=== PATIENT | male | born 1955 | race Caucasian/White ===

== ENCOUNTER 2019-12-30 06:55 | Outpatient (CLI) | payer OTHER, SELFPAY ==
[2019-12-30 07:28] LABS: Hemoglobin 16.7 g/dL (14.0-18.0); Mean Corpuscular HGB Conc 32.7 g/dl (32-36); Mean Corpuscular Volume 91.6 fl (80-100); Mean Platelet Volume 11.4 fl (7.4-10.4); Platelet Count Result 182 k/mm3 (150-375); Red Blood Count 5.57 M/mm3 (4.6-6.20); Red Cell Distribution Width 13.9 % (11.5-14.5); White Blood Count 9.5 K/mm3 (4.5-10.0)
[2019-12-30 07:54] LABS: Alanine Aminotransferase 37 U/L (4-50); Albumin Level 4.3 g/dL (3.5-5.1); Alkaline Phosphatase 76 U/L (38-126); Aspartate Amino Transferase 27 U/L (17-59); Bilirubin,Total 0.4 mg/dL (0.2-1.3); Blood Urea Nitrogen 15 mg/dL (9-20); Calcium 9.1 mg/dL (8.4-10.2); Carbon Dioxide 25 mmol/L (22-30); Chloride 103 mmol/L (98-107); Cholesterol 117 mg/dL (0-200); Estimated Glomerular Filt Rate > 60; Glucose 165 mg/dL (75-110); HDL Direct 31 mg/dL; Potassium 3.9 mmol/L (3.4-5.0); Sodium 137 mmol/L (137-145); Triglycerides 186 mg/dL (<150)
[2019-12-30 08:05] LABS: LDL Cholesterol Direct 59 mg/dL
[2020-01-04 13:22] LABS: Testosterone Free 30.2 pg/mL (35.0-155.0); Testosterone Total 158 ng/dL (250-1100)
== END 2019-12-30 06:56 | disposition home or self-care (01) ==
PROVIDERS: PCP Family Medicine; Visit Provider Nurse Practitioner Family
DX: Z13.29 Encounter for screening for other suspected endocrine disorder (principal); R79.89 Other specified abnormal findings of blood chemistry; I10 Essential (primary) hypertension
CPT/HCPCS: 36415; 80053; 80061; 84402; 84403; 84443; 85027

== ENCOUNTER 2020-05-04 07:27 | Outpatient (CLI) | payer OTHER, SELFPAY ==
[2020-05-04 10:41] LABS: Creatinine Urine 206.9 mg/dL
[2020-05-04 10:53] LABS: MALB Creatinine Ratio 173.6 mg/g (0-30); Microalbumin Urine Random 359.1 mg/L (0-16.7)
== END 2020-05-04 07:28 | disposition home or self-care (01) ==
PROVIDERS: PCP Family Medicine; Visit Provider Nurse Practitioner Family
DX: E11.9 Type 2 diabetes mellitus without complications (principal)
CPT/HCPCS: 36415; 82043

== ENCOUNTER 2020-05-11 07:54 | Outpatient (CLI) | payer OTHER, SELFPAY ==
[2020-05-11 08:26] LABS: Anion Gap 5 mmol/L (8-16); Blood Urea Nitrogen 20 mg/dL (9-20); Calcium 9.2 mg/dL (8.4-10.2); Carbon Dioxide 33 mmol/L (22-30); Chloride 105 mmol/L (98-107); Cholesterol 94 mg/dL (0-200); Estimated Glomerular Filt Rate > 60; Glucose 126 mg/dL (75-110); HDL Direct 32 mg/dL; Potassium 4.3 mmol/L (3.4-5.0); Sodium 143 mmol/L (137-145); Triglycerides 139 mg/dL (<150)
[2020-05-11 08:36] LABS: LDL Cholesterol Direct 41 mg/dL
== END 2020-05-11 07:55 | disposition home or self-care (01) ==
PROVIDERS: PCP Family Medicine; Visit Provider Nurse Practitioner Family
DX: E11.9 Type 2 diabetes mellitus without complications (principal); Z12.5 Encounter for screening for malignant neoplasm of prostate
CPT/HCPCS: 36415; 80048; 80061; 84153; G0103

== ENCOUNTER 2020-05-14 12:05 | Outpatient (NON) | payer OTHER, SELFPAY ==
[2020-05-14 22:14] LABS: SARS-CoV-2 RNA PCR Negative
== END 2020-05-14 12:06 ==
PROVIDERS: PCP Family Medicine; Visit Provider Physician Assistant Medical
DX: Z20.828 Contact with and (suspected) exposure to other viral communicable diseases (principal); R68.89 Other general symptoms and signs
CPT/HCPCS: 87635; C9803; U0003

== ENCOUNTER 2020-09-30 16:18 | Outpatient (CLI) | payer OTHER, SELFPAY | END 2020-09-30 16:19 | disposition home or self-care (01) | LOC: ANHCOVIDVC 16:18 | PROVIDERS: PCP Family Medicine | DX: Z23 Encounter for immunization (principal) | CPT/HCPCS: 0001A; 91300 ==

== ENCOUNTER 2020-10-21 16:09 | Outpatient (CLI) | payer OTHER, SELFPAY | END 2020-10-21 16:10 | disposition home or self-care (01) | LOC: ANHCOVIDVC 16:10 | PROVIDERS: PCP Family Medicine | DX: Z23 Encounter for immunization (principal) | CPT/HCPCS: 0002A; 91300 ==

== ENCOUNTER 2021-02-01 07:18 | Outpatient (CLI) | payer OTHER, SELFPAY ==
[2021-02-01 08:06] LABS: Hematocrit 53.1 % (42.0-52.0); Hemoglobin 17.4 g/dL (14.0-18.0); Mean Corpuscular HGB Conc 32.8 g/dl (32-36); Mean Corpuscular Hemoglobin 30.3 pg (26-34); Mean Corpuscular Volume 92.5 fl (80-100); Mean Platelet Volume 11.7 fl (7.4-10.4); Platelet Count Result 181 k/mm3 (150-375); Red Blood Count 5.74 M/mm3 (4.6-6.20); Red Cell Distribution Width 14.2 % (11.5-14.5); White Blood Count 10.2 K/mm3 (4.5-10.0)
[2021-02-01 08:30] LABS: Alanine Aminotransferase 58 U/L (4-50); Albumin Level 4.5 g/dL (3.5-5.1); Alkaline Phosphatase 66 U/L (38-126); Anion Gap 11 mmol/L (8-16); Aspartate Amino Transferase 38 U/L (17-59); Bilirubin,Total 0.6 mg/dL (0.2-1.3); Blood Urea Nitrogen 19 mg/dL (9-20); Calcium 9.6 mg/dL (8.4-10.2); Carbon Dioxide 26 mmol/L (22-30); Chloride 103 mmol/L (98-107); Cholesterol 100 mg/dL (0-200); Estimated Glomerular Filt Rate > 60; Glucose 126 mg/dL (75-110); HDL Direct 38 mg/dL; LDL Cholesterol Direct 41 mg/dL; Potassium 4.2 mmol/L (3.4-5.0); Sodium 140 mmol/L (137-145); Triglycerides 87 mg/dL (<150)
[2021-02-01 08:50] LABS: Prostate Specific Antigen 1.9 ng/mL (< OR = 4.0)
[2021-02-06 18:04] LABS: Testosterone Free 31.7 pg/mL (35.0-155.0); Testosterone Total 174 ng/dL (250-1100)
== END 2021-02-01 07:19 | disposition home or self-care (01) ==
LOC: ANHLAB 07:20
PROVIDERS: PCP Family Medicine; Visit Provider Nurse Practitioner Family
DX: E34.9 Endocrine disorder, unspecified (principal); I10 Essential (primary) hypertension; E78.2 Mixed hyperlipidemia
CPT/HCPCS: 36415; 80053; 80061; 84153; 84402; 84403; 85027; G0103

== ENCOUNTER 2021-03-26 15:52 | Outpatient (CLI) | payer OTHER, SELFPAY ==
[2021-03-26 16:37] LABS: Alanine Aminotransferase 46 U/L (4-50)
[2021-03-30 14:51] LABS: Testosterone Free 101.5 pg/mL (35.0-155.0); Testosterone Total 470 ng/dL (250-1100)
== END 2021-03-26 15:53 | disposition home or self-care (01) ==
LOC: ANHLAB 15:54
PROVIDERS: PCP Family Medicine; Visit Provider Nurse Practitioner Family
DX: E34.9 Endocrine disorder, unspecified (principal); R74.8 Abnormal levels of other serum enzymes
CPT/HCPCS: 36415; 84402; 84403; 84460

== ENCOUNTER 2021-08-09 15:03 | Emergency (ER) | payer OTHER, SELFPAY ==
[2021-08-09] VITALS (8 sets, daily range): BP systolic 113–128; BP diastolic 68–72; PULSE 87–102; RESP 15–29; TEMP 37.7–39.4; O2SAT 92–98
--- NOTE | ~2021-08-09 | XR_ITS ---
EXAMINATION: XR chest 1V portable EXAM DATE: 08/09/2021 19:09 INDICATION: cough, fever . TECHNIQUE: Portable AP frontal chest x-ray was obtained. Comparison is made to prior examination from 09/01/2016. FINDINGS: Small amount of ill-defined bibasilar atelectasis or pneumonia. No pneumothorax or pleural effusion. Cardiomediastinal silhouette is normal. There are no osseous abnormalities identified. IMPRESSION: Small amount of bibasilar pneumonia and/or atelectasis. Reviewed, dictated and finalized at location G. BASE DESIGN ANALYST
--- NOTE | 2021-08-09 19:05 | ED.FEVER ---
HPI - Fever General Chief Complaint: Fever <NINA Rincon Last Filed: 08/09/21 21:42> Stated Complaint: fever, cough <NINA Rincon Last Filed: 08/09/21 21:42> Time Seen by Provider: 08/09/21 18:42 <NINA Rincon Last Filed: 08/09/21 21:42> Source: patient <NINA Rincon Last Filed: 08/09/21 21:42> Mode of arrival: ambulatory <NINA Rincon Last Filed: 08/09/21 21:42> Limitations: no limitations <NINA Rincon Last Filed: 08/09/21 21:42> History of Present Illness HPI Narrative: This is a 65 year old male that presents to the ER for cold symptoms present over the last couple of weeks. Reports congestion, cough, myalgias, fatigue and fever. Denies chest pain or shortness of breath. <NINA Rincon Last Filed: 08/09/21 21:42> Related Data Allergies/Adverse Reactions: Allergies Allergy/AdvReac Type Severity Reaction Status Date / Time clarithromycin Allergy Unknown Rash Verified 06/02/21 14:42 Beer Allergy Unknown NASAL Uncoded 06/02/21 14:42 CONGESTION <NINA Rincon Last Filed: 08/09/21 21:42> Review of Systems Review of Systems: CONSTITUTIONAL: Reports fever ENT: Reports congestion, sore throat CARDIOVASCULAR: Denies chest pain, or edema. RESPIRATORY: Reports cough. Denies dyspnea. <NINA Rincon Last Filed: 08/09/21 21:42> All systems reviewed & are unremarkable except as noted in HPI and below <NINA Rincon Last Filed: 08/09/21 21:42> PMFSH Past Medical History Medical History: Medical History Acute left-sided low back pain with left-sided sciatica BMI 36.0-36.9,adult Chronic right shoulder pain Diabetes type 2, controlled Essential (primary) hypertension Mixed hyperlipidemia Tobacco use <NINA Rincon Last Filed: 08/09/21 21:42> Family History Family History: Family History Father Cerebrovascular accident Mother Family history of diabetes mellitus in first degree relative Family history of coronary artery disease <Katty Jacobs PA-C - Last Filed: 08/09/21 21:42> Social History Social History: Social History Smoking packs per day: 1 Smoking cigarettes per day: 20.0 Years smoked: 35 Smoking pack-years: 35.00 Tobacco type: cigarettes Second hand tobacco smoke exposure: No Alcohol intake: former Substance use: never Substance use type: does not use Additional living arrangements comments: 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 HEAD: Normocephalic, atraumatic. EYES: EOMI. ENT: Nares clear, no rhinorrhea or epistaxis. Mucous membranes moist. Oropharynx without tonsillar hypertrophy exudate or other lesions. Bilateral TMs pearly apple non-bulging NECK: Supple. No adenopathy or masses. CHEST: Clear to auscultation. No respiratory distress. No wheezes rales or rhonchi HEART: Regular rate and rhythm. No murmur heard. Normal peripheral pulses. EXTREMITIES: Normal range of motion. No edema. SKIN: Warm, dry, no rash. NEURO: No focal deficits. Alert and oriented x3. PSYCH: Normal mood and affect <Katty Jacobs PA-C - Last Filed: 08/09/21 21:42> Course ANIMAL CHIROPRACTOR/PA Physician Supervision For this patient encounter, I reviewed the ANIMAL CHIROPRACTOR or PA documentation, treatment plan, and medical decision making <Sylvain George MD - Last Filed: 08/09/21 23:30> Vital Signs Vital signs: Vital Signs Temperature 99.8 F H 08/09/21 15:35 P
[2021-08-09 19:06] LABS: Basophils Absolute Auto 0.1 K/mm3 (0.0-0.1); Basophils Percent Auto 0.7 % (0.2-1.2); Eosinophils Absolute Auto 0.1 K/mm3 (0-0.3); Eosinophils Percent Auto 1.2 % (0-4.4); Hematocrit 48.4 % (42.0-52.0); Hemoglobin 16.4 g/dL (14.0-18.0); Immature Granulocyte Absolute 0.09 K/mm3 (0.00-0.031); Lymphocytes Absolute Auto 0.48 K/mm3 (0.9-3.2); Lymphocytes Percent Auto 5.3 % (18.3-44.2); Mean Corpuscular HGB Conc 33.9 g/dl (32-36); Mean Corpuscular Hemoglobin 30.8 pg (26-34); Mean Corpuscular Volume 90.8 fl (80-100); Monocytes Absolute Auto 1.1 K/mm3 (0.1-0.6); Monocytes Percent Auto 12.6 % (2.6-8.5); Neutrophils Absolute Auto 7.2 K/mm3 (1.3-6.7); Neutrophils Percent Auto 79.2 % (45.5-73.1); Platelet Count Result 152 k/mm3 (150-375); Red Blood Count 5.33 M/mm3 (4.6-6.20); Red Cell Distribution Width 14.7 % (11.5-14.5); White Blood Count 9.1 K/mm3 (4.5-10.0)
[2021-08-09 19:16] LABS: Anion Gap 13 mmol/L (8-16); Blood Urea Nitrogen 19 mg/dL (9-20); Calcium 9.5 mg/dL (8.4-10.2); Carbon Dioxide 23 mmol/L (22-30); Chloride 100 mmol/L (98-107); Estimated CRCL calculation 112 ml/min; Estimated Glomerular Filt Rate > 60; Glucose 114 mg/dL (65-110); Potassium 4.1 mmol/L (3.4-5.0); Sodium 136 mmol/L (137-145)
[2021-08-09] MEDS: ACETAMINOPHEN 500 MG TABLET 1000 MG PO (19:33)
[2021-08-09] MEDS: IBUPROFEN 400 MG TABLET PO (20:28)
[2021-08-09 21:23] LABS: Influenza A QL RT-PCR Negative (Negative); Influenza B QL RT-PCR Negative (Negative); SARS-CoV-2 RNA PCR Positive
== END 2021-08-09 21:53 | disposition home or self-care (01) ==
PROVIDERS: Physician Assistant; Emergency Provider Emergency Medicine; PCP Family Medicine
DX: U07.1 COVID-19 (principal); E11.9 Type 2 diabetes mellitus without complications; I10 Essential (primary) hypertension; E78.2 Mixed hyperlipidemia; Z79.84 Long term (current) use of oral hypoglycemic drugs; F17.210 Nicotine dependence, cigarettes, uncomplicated; R91.8 Other nonspecific abnormal finding of lung field
CPT/HCPCS: 36415; 71045; 80048; 85025; 87502; 99283; A9270; C9803; U0003; U0005

== ENCOUNTER 2021-08-21 14:12 | Outpatient (CLI) | payer OTHER, SELFPAY ==
--- NOTE | ~2021-08-21 | XR_ITS ---
EXAMINATION: XR chest 2V DATE: 08/21/2021 14:35 INDICATION: Bronchitis. COVID-19 pneumonia. TECHNIQUE: Frontal and lateral views of the chest were obtained. COMPARISON: Chest single view 08/09/2021, chest 2 views 09/01/2016 FINDINGS: There is chronic mild atelectasis versus scarring at right lung base. No pleural effusion o r pneumothorax. The heart size is normal. There is mild chronic anterior wedging of 2 midthoracic laura tebral bodies. IMPRESSION: 1. Chronic mild atelectasis versus scarring at right lung base. Reviewed, dictated and finalized at location A. T FACTORY WORKER
== END 2021-08-21 14:13 | disposition home or self-care (01) ==
PROVIDERS: PCP Family Medicine; Visit Provider Nurse Practitioner Family
DX: J40 Bronchitis, not specified as acute or chronic (principal); R91.8 Other nonspecific abnormal finding of lung field
CPT/HCPCS: 71046

== ENCOUNTER 2022-02-27 07:47 | Outpatient (CLI) | payer MEDICARE, OTHER, SELFPAY ==
[2022-02-27 09:13] LABS: Cholesterol 112 mg/dL (0-200); HDL Direct 35 mg/dL; Triglycerides 226 mg/dL (<150)
[2022-02-27 09:24] LABS: LDL Cholesterol Direct 42 mg/dL
[2022-02-27 09:30] LABS: Hemoglobin A1C 7.4 % (<5.7)
[2022-02-27 09:45] LABS: Prostate Specific Antigen 2.3 ng/mL (< OR = 4.0)
== END 2022-02-27 07:48 | disposition home or self-care (01) ==
PROVIDERS: PCP Family Medicine; Visit Provider Nurse Practitioner Family
DX: R39.11 Hesitancy of micturition (principal); E34.9 Endocrine disorder, unspecified; E78.2 Mixed hyperlipidemia; E11.9 Type 2 diabetes mellitus without complications; Z12.5 Encounter for screening for malignant neoplasm of prostate
CPT/HCPCS: 36415; 80061; 83036; 84153; G0103

== ENCOUNTER 2022-03-11 09:05 | Outpatient (CLI) | payer MEDICARE, OTHER, SELFPAY ==
--- NOTE | 2022-03-11 09:56 | ECHO_ITS ---
Patient Info Name: Titus Cha Age: 66 years : 1955 Gender: Male Ht: 73 in Wt: 280 lbs BSA: 2.60 m2 HR: 83 bpm BP: 145 / 98 mmHg Technical Quality: Good Exam Date: 03/11/2022 10:18 AM Exam Location: [facility] Patient Status: Outpatient Admit Date: 03/11/2022 Staff Ordering Physician: Rachele Manning Doctor Of Osteopathy: Tereza Spears RDCS Attending Provider: Rachele Manning Referring Physician: Nigel LIMA; Exam Type: CA echo doppler color flow Study Info Indications I10 - Essential (primary) hypertension Complete two-dimensional, color flow and Doppler transthoracic echocardiogram is performed. Summary 1. Complete two-dimensional, color flow and Doppler transthoracic echocardiogram is performed. 2. Left ventricular chamber dimension is normal. 3. Left ventricular systolic function is normal, estimated at 60-65%. 4. There is mildly increased left ventricular wall thickness. 5. The left ventricular diastolic function is grade I diastolic dysfunction. 6. E/e' 9 is minimally elevated. 7. Left atrial chamber dimension is mildly enlarged. Left Ventricle E/e' 9 is minimally elevated. Left ventricular chamber dimension is normal. Left ventricular systolic function is normal, estimated at 60-65%. There is mildly increased left ventricular wall thickness. The left ventricular diastolic function is grade I diastolic dysfunction. Right Ventricle Right ventricular systolic function is normal and with normal TAPSE 2.4 cm. Right ventricular chamber dimension is normal. Left Atria Left atrial chamber dimension is mildly enlarged. Right Atria Right atrial chamber dimension is normal. Aortic Valve The aortic valve is trileaflet. There is no aortic valve stenosis. There is no aortic valve regurgitation. Pulmonic Valve There is no pulmonic regurgitation. Mitral Valve There is no mitral valve stenosis. There is no mitral valve regurgitation. Tricuspid Valve There is no tricuspid valve regurgitation. Pericardium/Pleural There is no pericardial effusion. Inferior Vena Cava Normal inferior vena cava with >50% collapse upon inspiration consistent with normal right atrial pressure, 5 mmHg. Aorta The aortic root size at the sinus of Valsalva is normal. Left Ventricular Outflow Tract Name Value Normal LVOT 2D LVOT Diameter 2.0 cm LVOT Doppler LVOT Peak Gradient 7 mmHg LVOT Mean Gradient 5 mmHg LVOT VTI 29 cm LVOT VTI/AV VTI Ratio 0.7 LVOT Stroke Volume 91 ml LVOT CO 9.0 l/min LVOT CI 3.5 l/min/m2 Mitral Valve Name Value Normal MV Doppler MV Decel [place] 414 cm/s2
--- NOTE | 2022-03-11 10:52 | ECG_ITS ---
Measurements Intervals [place] Rate: 77 P: 77 NH: 144 QRS: 32 QRSD: 97 T: 186 QT: 386 QTc: 439 Interpretive Statements SINUS RHYTHM WITH FREQUENT VENTRICULAR PREMATURE COMPLEXES POSSIBLE LEFT ATRIAL ENLARGEMENT [-0.1mV P WAVE IN V1/V2] LOW QRS VOLTAGE IN EXTREMITY LEADS [QRS DEFLECTION < 0.5 mV IN LIMB LEADS] NONSPECIFIC ST & T-WAVE ABNORMALITY ABNORMAL ECG NO PREVIOUS ECG AVAILABLE FOR COMPARISON Electronically Signed On 03-11-2022 12:35:30 CDT by Fei Ayala M.D.
--- NOTE | 2022-03-13 16:41 | WPDHOLTEREM ---
Holter/Event Monitor Holter/Event Monitor Date of procedure: 03/11/22 Holter/Event Procedure: 48 Hr Holter Monitor Indications: Bradycardia Conclusion: 1. 48 hour holter monitor on 03/11/22. 2. Predominant rhythm is sinus rhythm. HR range 58-108 bpm; average HR 80 bpm. 3. There are 39 premature supraventricular complexes and 2 supraventricular couplets. There are 2 episodes of atrial tachycardia, fastest at 154 bpm and longest lasting 19 beats. 4. There are 8,675 premature ventricular complexes, 385 ventricular couplets, 30 ventricular triplets, 1,071 ventricular bigeminy and 43,155 ventricular trigeminy. No ventricular tachycardia. 5. No sinoatrial or atrioventricular blocks. No significant pauses greater than 2 seconds. 6. No symptoms available for correlation.
== END 2022-03-11 09:06 | disposition home or self-care (01) ==
LOC: ANHCARD 09:08
PROVIDERS: PCP Family Medicine; Visit Provider Nurse Practitioner Family
DX: R00.1 Bradycardia, unspecified (principal); Z72.0 Tobacco use; R06.02 Shortness of breath; I10 Essential (primary) hypertension; R94.31 Abnormal electrocardiogram [ECG] [EKG]; I51.7 Cardiomegaly
CPT/HCPCS: 93005; 93225; 93226; 93306

== ENCOUNTER 2022-04-04 07:46 | Outpatient (CLI) | payer MEDICARE, OTHER, SELFPAY ==
[2022-04-04 09:00] LABS: Alanine Aminotransferase 43 U/L (6-50); Albumin Level 4.6 g/dL (3.5-5.1); Alkaline Phosphatase 67 U/L (38-126); Anion Gap 16 mmol/L (8-16); Aspartate Amino Transferase 32 U/L (17-59); Bilirubin,Total 0.6 mg/dL (0.2-1.3); Blood Urea Nitrogen 18 mg/dL (9-20); Calcium 9.1 mg/dL (8.4-10.2); Carbon Dioxide 26 mmol/L (22-30); Chloride 100 mmol/L (98-107); Cholesterol 115 mg/dL (0-200); Estimated Glomerular Filt Rate > 60; Glucose 153 mg/dL (65-110); HDL Direct 35 mg/dL; Potassium 4.2 mmol/L (3.4-5.0); Sodium 142 mmol/L (137-145); Triglycerides 179 mg/dL (<150)
[2022-04-04 09:12] LABS: LDL Cholesterol Direct 50 mg/dL
== END 2022-04-04 07:47 | disposition home or self-care (01) ==
PROVIDERS: PCP Family Medicine; Visit Provider Internal Medicine Cardiovascular Disease
DX: E78.2 Mixed hyperlipidemia (principal)
CPT/HCPCS: 36415; 80053; 80061

== ENCOUNTER 2022-04-23 08:33 | Outpatient (CLI) | payer MEDICARE, OTHER, SELFPAY ==
--- NOTE | 2022-04-23 08:55 | EST_ITS ---
Patient Info Name: Titus Cha Age: 66 years : 1955 Gender: Male Ht: 73 in Wt: 280 lbs BSA: 2.60 m2 HR: 132 bpm BP: 187 / 65 mmHg Technical Quality: Fair Exam Date: 04/23/2022 9:24 AM Exam Location: [facility] Pulmonary Exam Room: STRESS LAB Patient Status: Outpatient Admit Date: 04/23/2022 Staff Ordering Physician: Delmy Prado DO Intermodal Truck Driver: Consuelo Burnette RDCS Attending Provider: DELMY PRADO DO Referring Physician: Feliberto CHEN; Exercise Technologist: Aby Alexander RDCS Exercise Physician: Delmy Prado DO Exam Type: CA stress echo Study Info Indications R06.00 - Dyspnea, unspecified Treadmill exercise stress echocardiogram is performed. Summary 1. 1. Negative Thomas exercise stress test for ischemic ST changes by ECG criteria. 2. 2. Reduced functional capacity, achieving 7 METs of workload. 3. 3. Appropriate HR response to exercise. 4. 4. Appropriate HR recovery at 1 minute post exercise. 5. 5. Negative stress echocardiogram for ischemia by wall motion analysis. 6. 6. Patient informed of the above results. Stress Echo Findings Left Ventricle Appropriate increase in LV endocardial thickening with systole. Appropriate augmentation of contractility with systole. No wall motion abnormality. Left Ventricle Normal LV systolic function, no wall motion abnormality. Protocol: Thomas Stress ECG Details Stage: REST Duration (min): 1 min : 14 sec Speed (mph): 0.0 Grade (%): 0 HR (bpm): 75 SBP (mmHg): 131 DBP (mmHg): 75 METS: --- Stage: REST Duration (min): 21 min : 19 sec Speed (mph): 0.0 Grade (%): 0 HR (bpm): 83 SBP (mmHg): 131 DBP (mmHg): 75 METS: --- Stage: STAGE 1 Duration (min): 1 min : 0 sec Speed (mph): 1.7 Grade (%): 10 HR (bpm): 96 SBP (mmHg): 131 DBP (mmHg): 75 METS: --- Stage: STAGE 1 Duration (min): 2 min : 0 sec Speed (mph): 1.7 Grade (%): 10 HR (bpm): 107 SBP (mmHg): 131 DBP (mmHg): 75 METS: --- Stage: STAGE 1 Duration (min): 3 min : 0 sec Speed (mph): 1.7 Grade (%): 10 HR (bpm): 115 SBP (mmHg): 177 DBP (mmHg): 50 METS: --- Stage: STAGE 2 Duration (min): 1 min : 0 sec Speed (mph): 2.5 Grade (%): 12 HR (bpm): 124 SBP (mmHg): 177 DBP (mmHg): 50 METS: --- Stage: STAGE 2 Duration (min): 1 min : 59 sec Speed (mph): 0.0 Grade (%): 0 HR (bpm): 133 SBP (mmHg): 187 DBP (mmHg): 65 METS: --- Stage: RECOVERY Duration (min): 1 min : 0 sec Speed (mph): 0.0 Grade (%): 0 HR (bpm): 125 SBP (mmHg): 187 DBP (mmHg): 65 METS: --- Stage: RECOVERY Duration (min): 2 min : 0 sec Speed (mph): 0.0 Grade (%): 0 HR (bpm): 115 SBP (mmHg): 173 DBP (mmHg): 67 METS: --- Stage: RECOVERY Duration (min): 3 min : 0 sec Speed (mph): 0.0 Grade (%): 0 HR (bpm): 100 SBP (mmHg): 195 DBP (mmHg): 70 METS: --- Sta
== END 2022-04-23 08:34 | disposition home or self-care (01) ==
PROVIDERS: PCP Family Medicine; Visit Provider Internal Medicine Cardiovascular Disease
DX: R06.09 Other forms of dyspnea (principal)
CPT/HCPCS: 93351

== ENCOUNTER 2022-05-22 07:43 | Outpatient (CLI) | payer MEDICARE, OTHER, SELFPAY ==
--- NOTE | 2022-06-01 17:10 | WPDSLEEPSTUD ---
Sleep Study Date of Study: 05/22/22 Ordering Provider: Reji Dao DO Interpreting Physician: Skyla Bergeron DO Sleep Study Type: Polysomnogram Height: 1.85 m Weight: 127.006 kg Body Mass Index: 36.9 Neck Circumference (inches): 20 [place]: 9 Reason for Sleep Study Previously diagnosed MIGEL and on CPAP. Concerns for correct pressure setting Sleep History The patient is a 66-year-old male with hypertension, diabetes and tobacco use that had a sleep study ordered by his certified pesticide applicator. the patient had a split night study ordered but he spent the majority of the study awake. The patient is currently retired. He occasionally awakens from sleep short of breath. He denies awakening at night with heartburn, belching or cough. He occasionally snores but it is never loud enough that others complain. He occasionally has trouble sleeping when he has a cold. He rarely wakes up gasping for air throughout the night. He denies sweating excessively at night. He denies having heart palpitations or irregular heartbeats during the night. He occasionally falls asleep during the day but never while driving. He denies sleep paralysis, cataplexy and hypnagogic / hypnopompic hallucinations. He denies having trouble at school or work due to sleepiness. He denies feeling afraid of going to sleep. He rarely has nightmares. He occasionally remembers his dreams. He rarely has thoughts racing through his mind. He denies feeling sad or depressed. He denies having anxiety. He denies having muscular tension. He denies noticing parts of his body jerk. He denies kicking during the night. He denies having crawling and aching feelings in his legs as well as leg pain during the night. He occasionally grinds his teeth during sleep but never awakens with morning jaw pain. He is rarely bothered by pain during the day but never awakened by pain during the night. He occasionally wakes up feeling stiff in the morning. He denies waking up with sore or achy muscles. He denies waking up with pain in the neck, spine or other joints. He goes to bed at 8:00 p.m. on both weekdays and weekends. It takes him 15 minutes to fall asleep. He wakes up 1-2 times throughout the night for unknown reasons. When he awakens, he will get a snack, watch TV and go back to bed. He will stay awake for 1 hour. He wakes up at 4:00 a.m. on weekdays and between 4-5 a.m. on the weekends. He typically gets 6 hours of sleep per night. He does not stay in bed after waking up in the morning. He currently lives with his . He does not consume any caffeinated beverages within 2 hours of bedtime. He does not engage in physical exercise before bedtime. He will watch television before falling asleep. He denies reading before falling asleep. He will take naps in the afternoon or the evening and they are refreshing. He does not consume any caffeinated beverages throughout the day. He currently smokes 1 pack of cigarettes per day. He denies alcohol and recreational drug use. [facility] Past Medical History Medical History Acute left-sided low back pain with left-sided sciatica BMI 36.0-36.9,adult BMI 37.0-37.9, adult Chronic right shoulder pain Diabetes type 2, controlled Essential (primary) hypertension History of COVID-19 Mixed hyperlipidemia Tobacco use Surgical History Surgical History H/O bone graft H/O shoulder surgery S/P right rotator cuff repair Family History Family History Father Cerebrovascular accident Mother Family history of diabetes mellitus in first degree relative Family history of coronary artery disease Acute myocardial infarction Diabetes mellitus Sibling No problems noted. Social History Social History Smoking packs per day: 1 Smoking cigarettes per
[2022-06-01 17:23] VITALS: BMI 36.9
== END 2022-05-23 04:57 | disposition home or self-care (01) ==
PROVIDERS: PCP Family Medicine; Visit Provider Internal Medicine Cardiovascular Disease
DX: G47.33 Obstructive sleep apnea (adult) (pediatric) (principal); G47.9 Sleep disorder, unspecified; R00.8 Other abnormalities of heart beat
CPT/HCPCS: 95810

== ENCOUNTER 2022-10-09 19:40 | Emergency (ER) | payer MEDICARE, OTHER, SELFPAY ==
[2022-10-09 20:01] VITALS: BP 188/93; PULSE 71; RESP 16; TEMP 35.7; O2SAT 96
[2022-10-09 22:14] VITALS: BP 194/117; PULSE 67; RESP 17; O2SAT 97
--- NOTE | 2022-10-09 23:03 | ED.GENADULT ---
HPI - General Adult General Chief complaint: Recheck/Abnormal Lab/Rx Stated complaint: check high blood pressure Time Seen by Provider: 10/09/22 22:02 History of Present Illness HPI narrative: This is a 66-year-old male presenting ED with chief complaint of hypertension. 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 He is unsure of the reason. He then bought a home blood pressure cuff and had blood pressures as high as 175/110. He repeated to take it throughout the day and it has continued to go up. He denies chest pain, difficulty breathing or neurologic symptoms. Denies head trauma or use of blood thinners. Related Data Home Medications Medication Instructions Recorded Confirmed aspirin 81 mg tablet,delayed 81 mg PO DAILY 08/25/21 09/30/22 release multivitamin 1 tablet PO DAILY 08/25/21 09/30/22 fenofibrate micronized 134 mg 134 mg PO DAILY 07/08/22 09/30/22 capsule metoprolol succinate 25 mg 25 mg PO DAILY 07/08/22 09/30/22 tablet,extended release 24 hr Allergies Allergy/AdvReac Type Severity Reaction Status Date / Time hops Allergy Mild Congested Verified 10/09/22 20:01 clarithromycin Allergy Unknown Rash Verified 10/09/22 20:01 biaxin AdvReac Intermediate Swelling Uncoded 10/09/22 20:01 PMF Past Medical History Medical History Acute left-sided low back pain with left-sided sciatica BMI 36.0-36.9,adult BMI 37.0-37.9, adult Chronic right shoulder pain Diabetes type 2, controlled Essential (primary) hypertension History of COVID-19 Mixed hyperlipidemia Tobacco use Surgical History Surgical History H/O bone graft H/O shoulder surgery S/P right rotator cuff repair Family History Family History Father Cerebrovascular accident Mother Family history of diabetes mellitus in first degree relative Family history of coronary artery disease Acute myocardial infarction Diabetes mellitus Sibling No problems noted. 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 Head: atraumatic. EYES: EOMI, NOSE: Atraumatic NECK: Trachea midline RESPIRATORY: patient has scattered expiratory wheezing but no increased rate of breathing or shortness of breath CARDIOVASCULAR: RRR, no peripheral edema , equal pulses in all extremities ABDOMINAL: Non-distended soft nontender no guarding neuro MUSCULOSKELETAl: No obvious deformities NEURO: Alert. Cranial nerves 2-12 grossly intact. Sensation light touch, motor function cerebellar function intact for 4 extremities. Gait exam was normal. SKIN:: Warm, dry. Normal color PSYCHIATRIC: Normal affect Course Vital Signs Vital signs: Vital Signs Temperature 96.2 F L 10/09/22 20:01 Pulse Rate 71 10/09/22 20:01 Respiratory Rate 16 10/09/22 20:01 Blood Pressure 188/93 H 10/09/22 20:01 Pulse Oximetry 96 10/09/22 20:01 Oxygen Delivery Room Air 10/09/22 20:01 Temperature 96.2 F L 10/09/22 20:01 Pulse Rate 67 10/09/22 22:14 Respiratory Rate 17 10/09/22 22:14 Blood Pressure 194/117 H
== END 2022-10-09 23:32 | disposition home or self-care (01) ==
PROVIDERS: Emergency Provider Emergency Medicine; PCP Family Medicine
DX: I10 Essential (primary) hypertension (principal); E11.9 Type 2 diabetes mellitus without complications; Z86.16 Personal history of COVID-19; E78.2 Mixed hyperlipidemia; F17.210 Nicotine dependence, cigarettes, uncomplicated; Z79.82 Long term (current) use of aspirin; Z79.84 Long term (current) use of oral hypoglycemic drugs
CPT/HCPCS: 99281

== ENCOUNTER 2022-11-20 17:14 | Emergency (ER) | payer MEDICARE, OTHER, SELFPAY ==
--- NOTE | ~2022-11-20 | XR_ITS ---
EXAMINATION: XR finger 1st RT min 2V DATE: 11/20/2022 17:37 INDICATION: Right thumb injury and pain. TECHNIQUE: 3 views of right thumb were obtained. COMPARISON: None. FINDINGS: There is an oblique extra-articular fracture of first distal phalanx. The distal fracture f ragment demonstrates near-anatomic alignment. 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 IMPRESSION: 1. Nondisplaced extra-articular oblique fracture of first distal phalanx. Reviewed, dictated and finalized at location E.
[2022-11-20 17:24] VITALS: BP 132/71; PULSE 79; RESP 16; TEMP 36.6; O2SAT 99
--- NOTE | 2022-11-20 18:04 | ED.UPPEXIN ---
HPI - Extremity Injury (Upper) General Chief Complaint: Extremity Injury, Upper Stated Complaint: right thumb injury Time Seen by Provider: 11/20/22 18:04 Source: patient Mode of arrival: ambulatory Limitations: no limitations History of Present Illness HPI narrative: 67-year-old male presented for complaint of pain to the right thumb after injury today. He states he injured the thumb while using a piece of equipment, stating a tree branch struck the thumb. Endorses swelling, bruising, and pain, and decreased range of motion. Small bruising under the nail without nail injury. No open wounds or active bleeding. Related Data Home Medications Medication Instructions Recorded Confirmed aspirin 81 mg tablet,delayed 81 mg PO DAILY 08/25/21 11/20/22 release multivitamin 1 tablet PO DAILY 08/25/21 11/20/22 fenofibrate micronized 134 mg 134 mg PO DAILY 07/08/22 11/20/22 capsule benazepril 20 1 tablet PO .BID 10/14/22 11/20/22 mg-hydrochlorothiazide 12.5 mg tablet metoprolol succinate 25 mg 25 mg PO DAILY 10/14/22 11/20/22 tablet,extended release 24 hr Allergies Allergy/AdvReac Type Severity Reaction Status Date / Time hops Allergy Mild Congested Verified 11/20/22 17:18 clarithromycin Allergy Unknown Rash Verified 11/20/22 17:18 biaxin AdvReac Intermediate Swelling Uncoded 11/20/22 17:18 Review of Systems Review of Systems: CONSTITUTIONAL: Denies body aches, fever, chills EYES: Denies visual changes ENT: Denies rhinorrhea, congestion CARDIOVASCULAR: Denies chest pain, palpitations, or edema. RESPIRATORY: Denies cough or dyspnea. GASTROINTESTINAL: Denies abdominal pain, nausea, vomiting, or diarrhea. SKIN: Denies rash, itching, or wounds. MUSCULOSKELETAL: per HPI NEUROLOGIC: Denies headache, numbness, tingling, or weakness. PSYCH: Denies depression or anxiety. All systems reviewed & are unremarkable except as noted in HPI and below PMFSH Past Medical History Medical History Acute left-sided low back pain with left-sided sciatica BMI 36.0-36.9,adult BMI 37.0-37.9, adult Chronic right shoulder pain Diabetes type 2, controlled Essential (primary) hypertension History of COVID-19 Mixed hyperlipidemia Tobacco use Surgical History Surgical History H/O bone graft H/O shoulder surgery S/P right rotator cuff repair Family History Family History Father Cerebrovascular accident Mother Family history of diabetes mellitus in first degree relative Family history of coronary artery disease Acute myocardial infarction Diabetes mellitus Sibling No problems noted. Social History Social History Smoking packs per day: 1 Smoking cigarettes per day: 20.0 Years smoked: 35 Smoking pack-years: 35.00 Smoking status: Current every day smoker Tobacco type: cigarettes Second hand tobacco smoke exposure: Yes Alcohol intake: former Substance use: never Substance use type: does not use Living arrangements: with family Additional living arrangements comments: Occupation/Education: retired Additional occupation/education comments: [employer] Gender identity (if verbalized by the patient): Male Sexual Orientation (if Verbalized by the Patient): Straight or Heterosexual Spiritual care concerns: No Agree to blood products: Yes Comments At time of signature, I have reviewed and agree with nursing past medical, surgical, social and family history unless otherwise noted. Please see nursing chart for further information. There is no relevant family history pertinent to the presenting complaint Exam Narrative: GENERAL: Well-appearing, well-nourished, and in no acute distress. HEAD: Normocephalic, atraumatic. EYES: PERRLA, conjunctivae clear NECK: Supple. CHEST: Speaks i
== END 2022-11-20 18:20 | disposition home or self-care (01) ==
PROVIDERS: Emergency Provider Nurse Practitioner Family; PCP Family Medicine
DX: S62.524A Nondisplaced fracture of distal phalanx of right thumb, initial encounter for closed fracture (principal); W22.8XXA Striking against or struck by other objects, initial encounter; E11.9 Type 2 diabetes mellitus without complications; I10 Essential (primary) hypertension; E78.2 Mixed hyperlipidemia; Z86.16 Personal history of COVID-19; F17.210 Nicotine dependence, cigarettes, uncomplicated
CPT/HCPCS: 29130; 73140; 99214; G0463

== ENCOUNTER 2022-12-10 00:28 | Day surgery (SDC) | payer MEDICARE, OTHER, SELFPAY ==
[2022-11-26 11:28] VITALS: BMI 37.6
--- NOTE | 2022-12-09 14:18 | PM.HPGS ---
History of Present Illness History of Present Illness Consent: Risks, benefits, and alternatives have been discussed and questions answered. Patient agrees to proceed with procedure. Chief complaint: hx colon polyps Narrative: Titus Cha Jr. is a 67 year old male With a history of polyps referred for colon cancer screening. His last colonoscopy was 5 years ago at which time several hyperplastic polyps were removed. Review of Systems Review of Systems: All systems reviewed & are unremarkable except as noted in HPI and below PMFSH Past Medical History Medical History Acute left-sided low back pain with left-sided sciatica BMI 36.0-36.9,adult BMI 37.0-37.9, adult Chronic right shoulder pain Diabetes type 2, controlled Essential (primary) hypertension History of COVID-19 Mixed hyperlipidemia Tobacco use Surgical History Surgical History H/O bone graft H/O shoulder surgery S/P right rotator cuff repair Family History Family History Father Cerebrovascular accident Mother Family history of diabetes mellitus in first degree relative Family history of coronary artery disease Acute myocardial infarction Diabetes mellitus Sibling No problems noted. Social History Social History Smoking packs per day: 1.25 Smoking cigarettes per day: 25.0 Years smoked: 40 Smoking pack-years: 50.00 Smoking status: Current every day smoker Tobacco type: cigarettes Second hand tobacco smoke exposure: Yes Alcohol intake: current Substance use: never Substance use type: does not use Lack of Transportation: No Lack of Food: Never True Current Housing: I Have Housing Concerned About Future Housing: No Difficulty Paying Gas/Electric Bills: No Difficulty Paying for Meds: No Currently Unemployed: No Difficulty w/ Childcare or Family Care: No Living arrangements: with family Additional living arrangements comments: Occupation/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 Gender identity (if verbalized by the patient): Male Sexual Orientation (if Verbalized by the Patient): Straight or Heterosexual Spiritual care concerns: No Agree to blood products: Yes Meds Home Medications and Allergies Home Medications Medication Instructions Recorded Confirmed Type aspirin 81 mg tablet,delayed 81 mg PO DAILY 08/25/21 12/04/22 History release multivitamin 1 tablet PO DAILY 08/25/21 12/04/22 History metformin 500 mg tablet 500 mg PO BID #180 tabs 06/04/22 12/04/22 Rx fenofibrate micronized 134 mg 134 mg PO DAILY 07/08/22 12/04/22 History capsule benazepril 20 1 tablet PO .BID 10/14/22 12/04/22 History mg-hydrochlorothiazide 12.5 mg tablet metoprolol succinate 25 mg 25 mg PO DAILY 10/14/22 12/10/22 History tablet,extended release 24 hr rosuvastatin 20 mg tablet 20 mg PO DAILY 11/26/22 12/04/22 History albuterol sulfate 90 mcg/actuation 2 puff inhalation Q4H PRN 12/04/22 12/04/22 Rx aerosol inhaler shortness of breath or wheezing #8.5 grams Allergies Allergy/AdvReac Type Severity Reaction Status Date / Time clarithromycin Allergy Mild Rash Verified 12/10/22 07:50 hops Allergy Mild Congested Verified 12/10/22 07:50 biaxin Allergy Intermediate Swelling Uncoded 12/10/22 07:50 Exam Const: General: alert Orientation/consciousness: patient oriented x3 Resp: Auscultation: clear to auscultation bilaterally Cardio: Rhythm: regular rhythm GI: GI Palp: Yes Soft to palpation and No Tenderness to palpation present (GI) Neuro: General: patient oriented x3 Assessment and Plan Assessment and plan (1) Colon cancer screening: Code(s): Z12.11 - Encounter for screening for malignant neoplasm of colon Status: Acute Assessme
[2022-12-10 07:51] VITALS: BP 143/81; PULSE 76; RESP 20; TEMP 36.3; O2SAT 96
[2022-12-10] MEDS: LACTATED RINGERS 1,000 ML 150 ML IV CONT (08:06)
[2022-12-10 08:10] LABS: Glucose Point of Care 180 mg/dl (65-105)
--- NOTE | 2022-12-10 08:43 | WPDANESEPPF ---
Anes - Initial Pre Proc Eval Procedure: Operation Date: 12/10/22 09:00 Proposed Procedures p Colonoscopy - Jossue Barker MD Date/Time: 12/10/22 08:43 Surgeon: Jossue Barker MD Pre Op Diagnosis: hx colon polyps Patient Data Age: 67 Gender: M Height: 1.85 m Weight: 125.5 kg Last Vital Signs Temp 97.4 F L 12/10/22 07:51 Pulse 76 12/10/22 07:51 Resp 20 12/10/22 07:51 BP 143/81 H 12/10/22 07:51 Pulse Ox 96 12/10/22 07:51 O2 Del Method Room Air 12/10/22 07:51 Allergies Allergy/AdvReac Type Severity Reaction Status Date / Time clarithromycin Allergy Mild Rash Verified 12/10/22 07:50 hops Allergy Mild Congested Verified 12/10/22 07:50 biaxin Allergy Intermediate Swelling Uncoded 12/10/22 07:50 Home Medications Medication Instructions Recorded Confirmed Type aspirin 81 mg tablet,delayed 81 mg PO DAILY 08/25/21 12/04/22 History release multivitamin 1 tablet PO DAILY 08/25/21 12/04/22 History metformin 500 mg tablet 500 mg PO BID #180 tabs 06/04/22 12/04/22 Rx fenofibrate micronized 134 mg 134 mg PO DAILY 07/08/22 12/04/22 History capsule benazepril 20 1 tablet PO .BID 10/14/22 12/04/22 History mg-hydrochlorothiazide 12.5 mg tablet metoprolol succinate 25 mg 25 mg PO DAILY 10/14/22 12/10/22 History tablet,extended release 24 hr rosuvastatin 20 mg tablet 20 mg PO DAILY 11/26/22 12/04/22 History albuterol sulfate 90 mcg/actuation 2 puff inhalation Q4H PRN 12/04/22 12/04/22 Rx aerosol inhaler shortness of breath or wheezing #8.5 grams Laboratory Tests 12/10/22 07:58 POC Capillary Glucose 180 H mg/dl (65-105) Patient hx anesthesia problems: none Family hx anesthesia problems: none Results Review: All pre-operative results and documents have been reviewed as part of the pre-operative evaluation. [facility] Past Medical History Medical History Acute left-sided low back pain with left-sided sciatica BMI 36.0-36.9,adult BMI 37.0-37.9, adult Chronic right shoulder pain Diabetes type 2, controlled Essential (primary) hypertension History of COVID-19 Mixed hyperlipidemia Tobacco use Surgical History Surgical History H/O bone graft H/O shoulder surgery S/P right rotator cuff repair Family History Family History Father Cerebrovascular accident Mother Family history of diabetes mellitus in first degree relative Family history of coronary artery disease Acute myocardial infarction Diabetes mellitus Sibling No problems noted. Social History Social History Smoking packs per day: 1.25 Smoking cigarettes per day: 25.0 Years smoked: 40 Smoking pack-years: 50.00 Smoking status: Current every day smoker Tobacco type: cigarettes Second hand tobacco smoke exposure: Yes Alcohol intake: current Substance use: never Substance use type: does not use Lack of Transportation: No Lack of Food: Never True Current Housing: I Have Housing Concerned About Future Housing: No Difficulty Paying Gas/Electric Bills: No Difficulty Paying for Meds: No Currently Unemployed: No Difficulty w/ Childcare or Family Care: No Living arrangements: with family Additional living arrangements comments: Occupation/Education: 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
[2022-12-10 09:12] VITALS: BP 140/78; PULSE 68; RESP 22; O2SAT 100
[2022-12-10 09:22] VITALS: BP 145/92; PULSE 66; RESP 20; O2SAT 98
[2022-12-10 09:32] VITALS: BP 169/98; PULSE 68; RESP 22; O2SAT 98
== END 2022-12-10 09:39 | disposition home or self-care (01) ==
PROVIDERS: PCP Family Medicine; Visit Provider Internal Medicine Gastroenterology
PROC: 0DJD8ZZ Inspection of Lower Intestinal Tract, Via Natural or Artificial Opening Endoscopic (ICD-10-PCS; CPT 45378; principal; 2022-12-10 09:00)
DX: Z12.11 Encounter for screening for malignant neoplasm of colon (principal); K62.1 Rectal polyp; I10 Essential (primary) hypertension; E11.9 Type 2 diabetes mellitus without complications; E78.2 Mixed hyperlipidemia; F17.210 Nicotine dependence, cigarettes, uncomplicated; Z79.82 Long term (current) use of aspirin
CPT/HCPCS: 45385; 82948; 88305; J2704; J7120

== ENCOUNTER 2023-06-19 06:34 | Outpatient (CLI) | payer MEDICARE, OTHER, SELFPAY ==
[2023-06-19 07:04] LABS: Hematocrit 50.9 % (42.0-52.0); Hemoglobin 16.3 g/dL (14.0-18.0); Mean Corpuscular Hemoglobin 30.8 pg (26-34); Mean Platelet Volume 11.3 fl (7.4-10.4); Platelet Count Result 186 k/mm3 (150-375); White Blood Count 9.5 K/mm3 (4.5-10.0)
[2023-06-19 07:16] LABS: Alanine Aminotransferase 50 U/L (6-50); Albumin Level 4.8 g/dL (3.5-5.1); Alkaline Phosphatase 64 U/L (38-126); Anion Gap 13 mmol/L (8-16); Aspartate Amino Transferase 32 U/L (17-59); Bilirubin,Total 0.6 mg/dL (0.2-1.3); Blood Urea Nitrogen 33 mg/dL (9-20); Calcium 9.9 mg/dL (8.4-10.2); Carbon Dioxide 28 mmol/L (22-30); Chloride 101 mmol/L (98-107); Cholesterol 130 mg/dL (0-200); Estimated Glomerular Filt Rate 60; Glucose 176 mg/dL (65-110); HDL Direct 35 mg/dL; Potassium 3.9 mmol/L (3.4-5.0); Sodium 142 mmol/L (137-145); Triglycerides 270 mg/dL (<150)
[2023-06-19 07:26] LABS: LDL Cholesterol Direct 53 mg/dL
[2023-06-19 07:45] LABS: MALB Creatinine Ratio 130.1 mg/g (0-30); Microalbumin Urine Random 89.8 mg/L (0-16.7)
== END 2023-06-19 06:35 | disposition home or self-care (01) ==
LOC: ANHLAB 06:35
PROVIDERS: PCP Family Medicine; Visit Provider Nurse Practitioner Family
DX: E11.9 Type 2 diabetes mellitus without complications (principal); E78.2 Mixed hyperlipidemia; I10 Essential (primary) hypertension
CPT/HCPCS: 36415; 80053; 80061; 82043; 84443; 85027

== ENCOUNTER 2023-08-24 10:51 | Outpatient (CLI) | payer MEDICARE, OTHER, SELFPAY ==
--- NOTE | ~2023-08-24 | CT_ITS ---
EXAMINATION: CT diagnostic chest w con DATE: 08/24/2023 14:23 INDICATION: Right lung mass reported on 08/24/2023 chest radiographic examination TECHNIQUE: Computed tomography (CT) of the chest was performed without intravenous contrast. Automate d exposure control and iterative reconstruction technique were employed. Exam dose: 744.01 mGy-cm to kole exam DLP. COMPARISON: None FINDINGS: 7.5 mm posterior right apical mass with attenuation up to 203 Hounsfield units, likely fibr ocalcific scarring or partially calcified pulmonary granuloma. Irregular up to 2.3 x 2.6 cm mass is noted in the posterior segment of the right upper lobe, highly s uspicious for bronchogenic carcinoma. Indeterminate 3 mm pulmonary nodule in the right paraspinal area in the posterior segment of the righ t upper lobe; differential diagnosis includes pulmonary granuloma, small pulmonary malignancy. Mild emphysema. There is discoid atelectasis or scarring at the right lung base, including right lower lobe and minim ally of the middle lobe. Probable discoid scarring along the lingula extending to the left cardiac margin, greater fissure and left chest wall. No pulmonary infiltrate or consolidation. Normal heart size. No pericardial or pleural effusion. There is atherosclerotic calcification of the thoracic aorta but no thoracic aortic aneurysm or disse ction. Coronary artery calcifications. Normal morphology of the adrenal glands. Multiple gallstones are noted.. Right glenohumeral joint replacement. Diffuse idiopathic skeletal hyperostosis of the lower thoracic spine. No suspicious osteolytic or ost eoblastic lesions. IMPRESSION: 2.6 mm posterior segment right upper lobe mass most likely due to bronchogenic carcinoma Indeterminate 3 mm posterior segment right upper lobe mass Probable fibrocalcific scarring, posterior right apical and lingular areas Mild emphysema Cholelithiasis Right glenohumeral joint replacement Reviewed, dictated and finalized at [facility]. Reviewed, dictated and finalized at location [facility]. 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
--- NOTE | ~2023-08-24 | XR_ITS ---
XR chest 2V DATE: 08/24/2023 11:12 INDICATION: Shortness of breath, cough TECHNIQUE: PA and lateral views COMPARISON: None FINDINGS: There is an approximately 2.4 cm soft tissue mass highly suggestive of bronchogenic carcino ma in the posterior mid to upper right lung. CT thorax is recommended. There is prominent discoid atelectasis and/or scarring in the right lung base and to a lesser extent in the left lower lung field. No pleural effusion or pulmonary vascular congestion or pneumothorax is detected. No hilar or mediastinal enlargement is noted. There is aortic arch calcification and mild aortic tortuosity. Right humeral head prosthesis. Degenerative spurring of the thoracic spine. IMPRESSION: Approximately 2.4 cm right lung mass, highly suspicious for bronchogenic carcinoma Dr. Bhatt contacted Dominick Garvey by telephone on 08/24/2023 at 1233 hours with the report of the eric roximately 2.4 cm right lung mass, suspicious for bronchogenic carcinoma, and the recommendation for CT thorax, preferably with IV contrast material. Reviewed, dictated and finalized at [facility]. SUPERINTENDENT IMPRESSION: Approximately 2.4 cm right lung mass, highly suspicious for broncho genic carcinoma Dr. Bhatt contacted Dominick Garvey by telephone on 08/24/2023 at 1233 hours with the report of the approximately 2.4 cm right lung mass, suspicious for broncho genic carcinoma, and the recommendation for CT thorax, preferably with IV contr ast material.
[2023-08-24 14:17] LABS: Estimated Glomerular Filt Rate 40
== END 2023-08-24 10:52 | disposition home or self-care (01) ==
PROVIDERS: PCP Family Medicine; Visit Provider Nurse Practitioner Family
DX: J43.9 Emphysema, unspecified (principal); K80.20 Calculus of gallbladder without cholecystitis without obstruction; R91.8 Other nonspecific abnormal finding of lung field; R06.02 Shortness of breath; Z96.611 Presence of right artificial shoulder joint
CPT/HCPCS: 71046; 71260; Q9967

== ENCOUNTER 2023-08-30 10:07 | Outpatient (CLI) | payer MEDICARE, OTHER, SELFPAY ==
[2023-08-30 10:48] LABS: Basophils Absolute Auto 0.1 K/mm3 (0.0-0.1); Basophils Percent Auto 0.5 % (0.2-1.2); Eosinophils Absolute Auto 0.2 K/mm3 (0-0.3); Eosinophils Percent Auto 1.4 % (0-4.4); Hematocrit 54.6 % (42.0-52.0); Hemoglobin 17.2 g/dL (14.0-18.0); Immature Granulocyte Absolute 0.05 K/mm3 (0.00-0.031); Immature Granulocyte Percent A 0.5 % (0-0.5); Lymphocytes Absolute Auto 2.24 K/mm3 (0.9-3.2); Lymphocytes Percent Auto 20.4 % (18.3-44.2); Mean Corpuscular HGB Conc 31.5 g/dl (32-36); Mean Corpuscular Hemoglobin 29.1 pg (26-34); Mean Corpuscular Volume 92.4 fl (80-100); Mean Platelet Volume 11.1 fl (7.4-10.4); Monocytes Absolute Auto 0.9 K/mm3 (0.1-0.6); Monocytes Percent Auto 8.1 % (2.6-8.5); Neutrophils Absolute Auto 7.6 K/mm3 (1.3-6.7); Neutrophils Percent Auto 69.1 % (45.5-73.1); Platelet Count Result 241 k/mm3 (150-375); Red Blood Count 5.91 M/mm3 (4.6-6.20); Red Cell Distribution Width 13.9 % (11.5-14.5)
[2023-08-30 11:00] LABS: Anion Gap 9 mmol/L (8-16); Blood Urea Nitrogen 31 mg/dL (9-20); Calcium 9.7 mg/dL (8.4-10.2); Carbon Dioxide 30 mmol/L (22-30); Chloride 102 mmol/L (98-107); Estimated Glomerular Filt Rate 55; Glucose 167 mg/dL (65-110); Potassium 3.9 mmol/L (3.4-5.0); Sodium 141 mmol/L (137-145)
[2023-08-30 11:13] LABS: Erythrocyte Sedimentation Rate 5 mm/hr (0-20)
[2023-09-02 06:24] LABS: FSH 4.3 mIU/mL (1.4-12.8); LH 4.1 mIU/mL (1.6-15.2)
[2023-09-03 17:56] LABS: Testosterone Free 20.3 pg/mL (35.0-155.0); Testosterone Total 101 ng/dL (250-1100)
[2023-09-07 21:11] LABS: Estrogen 91 pg/mL (< OR = 404)
== END 2023-08-30 10:08 | disposition home or self-care (01) ==
LOC: ANHLAB 10:10
PROVIDERS: PCP Family Medicine; Visit Provider Family Medicine
DX: E34.9 Endocrine disorder, unspecified (principal); R68.89 Other general symptoms and signs; I10 Essential (primary) hypertension
CPT/HCPCS: 36415; 80048; 82672; 83001; 83002; 84146; 84402; 84403; 84443; 85025; 85652

== ENCOUNTER 2023-09-03 06:18 | Outpatient (CLI) | payer MEDICARE, OTHER, SELFPAY ==
[2023-08-30 10:57] VITALS: BMI 35.2
--- NOTE | 2023-08-30 10:58 | PC.NURSE ---
Pre Radiology instructions Report to the outpatient gita king on date __09/03/23___ at time __9:00AM for procedure Time: _11:00AM___ YOU MAY BE MONITORED AT HOSPITAL FOR UP TO 4 HOURS AFTER YOUR PROCEDURE. A visitor will be allowed to accompany the patient into the hospital. You and your visitor will be asked to self-screen and do not enter if you have any COVID symptoms. A mask is OPTIONAL within the hospital. Patients are to have no food or drink 6 hours prior to procedure time Driving will be restricted after the procedure, you must have a person to drive you home. Labs will be drawn in preop area and once reviewed, you will be taken to radiology area for procedure. When the procedure is completed, you will be taken to outpatient where you will be monitored for several hours. You may have one visitor in this area. Other than holding anti-coagulants, patient may take other medication(s) as scheduled. Prior to your appointment date patients are instructed to hold anti-coagulants after discussing with ordering provider to stop. If unable to discontinue anti-coagulants please notify radiologist. ? No aspirin or warfarin (Coumadin) for 7 days prior to the procedure. ? No clopidogrel (Plavix), ticagrelor (Brilinta), prasugrel (Effient) or dabigatran (Pradaxa) for 5 days prior to the procedure. ? No rivaroxaban (Xarelto), apixaban (Eliquis), dipyridamole (Aggrenox or Persantine) or cilostazol (Pletal) for 2 days prior to the procedure. Medications to discontinue per physician: _HOLD ASPIRIN 7 DAYS PRE-PROCEDURE Date to take last dose: __08/27/23 Please leave all valuables, including medications, at home the day of procedure. The hospital will not accept responsibility for valuables. Wear comfortable, loose fitting clothing.? Follow any additional instructions given to you from ordering provider. Telephone instructions given to ___PATIENT and asked if any additional questions and then verbalized understanding. Patient advised to call scheduling provider office or registration scheduling [phone] if any additional questions.
[2023-09-03] VITALS (13 sets, daily range): BP systolic 111–134; BP diastolic 67–89; PULSE 69–81; RESP 16–20; TEMP 36.1; O2SAT 93–98
--- NOTE | ~2023-09-03 | CT_ITS ---
EXAMINATION: CT biopsy lung w/imaging DATE: 09/03/2023 12:02 INDICATION: Right upper lobe mass TECHNIQUE: The procedure including the risks and benefits was discussed with the patient. Risks discu ssed included infection, approximately 1/20 risk of symptomatic hemorrhage beyond mild hemoptysis, ap proximately 1/3 risk of pneumothorax, and approximately 1/10 risk of pneumothorax severe enough to wa rrant chest tube placement. The patient understood the risks and agreed to proceed. The patient was p laced prone. The skin overlying the posterior right chest was prepped and draped in sterile fashion. Anesthetic was administered with 1% lidocaine subcutaneously. A 19 gauge outer needle was advanced under CT guidance to the lesion of interest. A 20 gauge core biopsy needle was then used to obtain 5 core biopsy specimens. The needle was removed and the entry site was cleaned and dressed. There wer e no immediate complications. The dose-length product was 100.51 mGy-cm. FINDINGS: CT images demonstrate the outer needle tip adjacent to a 2.9 cm mass in the posterior segme nt of the right upper lobe which concerning for primary bronchogenic carcinoma. IMPRESSION: 1. Successful CT-guided biopsy of a 2.9 cm right upper lobe mass concerning for primary bronchogenic carcinoma. Reviewed, dictated and finalized at location [facility]. HOLOGIST
--- NOTE | ~2023-09-03 | XR_ITS ---
EXAMINATION: XR chest 1V portable DATE: 09/03/2023 14:58 INDICATION: Status post percutaneous right lung biopsy TECHNIQUE: frontal view of the chest was obtained. COMPARISON: Chest radiograph dated 09/13/2023 at 1:03 PM FINDINGS: Minimal increase in size of a still small right pneumothorax with maximal separation of the pleural m argins of 3.1 cm the apex. Unchanged 3 cm right upper lobe nodule projecting over the right suprahila r region. Unchanged linear atelectasis/scarring at the right costophrenic angle and at the lingula. T he cardiomediastinal silhouette is normal. Right total shoulder arthroplasty. IMPRESSION: 1. Minimal increase in a still pneumothorax at the right upper lung zone. 2. 3 cm right upper lobe nodule concerning for primary bronchogenic carcinoma. Reviewed, dictated and finalized at location A. ET SAWYER
--- NOTE | ~2023-09-03 | XR_ITS ---
EXAMINATION: XR chest 1V portable DATE: 09/03/2023 13:08 INDICATION: One hour post percutaneous right lung biopsy. TECHNIQUE: frontal view of the chest was obtained. COMPARISON: Chest radiograph dated 09/03/2023 FINDINGS: There is been slight interval increase in size of a small pneumothorax at the right upper lung zone w ith maximal separation of the pleural margins measuring 2.8 cm. Again seen is the biopsied 3 similar right upper lobe nodule projecting over the suprahilar region. Chronic atelectasis/scarring at the ri ght costophrenic angle and at the lingula. No new airspace opacities, pulmonary edema, pleural effusi on or left pneumothorax. Heart size is normal. IMPRESSION: 1. Interval increase in size of a still small right pneumothorax post percutaneous biopsy of a 3 cm r ight upper lobe nodule suspicious for primary bronchogenic carcinoma. Reviewed, dictated and finalized at location [facility]. 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 Interval increase in size of a still small right pneumothorax post percutane ous biopsy of a 3 cm right upper lobe nodule suspicious for primary bronchogeni c carcinoma.
--- NOTE | ~2023-09-03 | XR_ITS ---
EXAMINATION: XR chest 1V DATE: 09/03/2023 12:00 INDICATION: Status post right lung biopsy TECHNIQUE: frontal view of the chest was obtained. COMPARISON: Chest radiograph dated 08/24/2023 FINDINGS: Again seen is the biopsied right upper lobe nodule measuring approximately 3 cm in the right suprahil ar region. Chronic linear discoid atelectasis/scarring at the lingula. No new airspace opacities, pul monary edema, pleural effusion or pneumothorax. Heart size is normal. IMPRESSION: 1. No pneumothorax, pleural effusion or other acute cardiopulmonary disease post percutaneous biopsy of a 3 cm right upper lobe nodule which is concerning for primary bronchogenic carcinoma. Reviewed, dictated and finalized at location [facility]. 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 No pneumothorax, pleural effusion or other acute cardiopulmonary disease pos t percutaneous biopsy of a 3 cm right upper lobe nodule which is concerning for primary bronchogenic carcinoma.
[2023-09-03 10:41] LABS: Prothrombin Time 13.7 Seconds (11.1-14.7)
[2023-09-03 12:22] LABS: Glucose Point of Care 121 mg/dl (65-105)
--- NOTE | 2023-09-03 15:22 | SUR.PHASEII ---
MD [place] at bedside - pt. ok to discharge home. Instructed to call 911 with any shortness of breath or coughing up blood.
== END 2023-09-03 15:32 | disposition home or self-care (01) ==
PROVIDERS: PCP Family Medicine; Referring Provider Nurse Practitioner Family; Visit Provider Radiology Diagnostic Radiology
PROC: BB24ZZZ Computerized Tomography (CT Scan) of Bilateral Lungs (ICD-10-PCS; CPT 32408; principal; 2023-09-03 11:00)
DX: C34.11 Malignant neoplasm of upper lobe, right bronchus or lung (principal); J93.9 Pneumothorax, unspecified; E11.9 Type 2 diabetes mellitus without complications; R06.02 Shortness of breath
CPT/HCPCS: 32408; 36415; 71045; 82948; 85610; 88305

== ENCOUNTER 2023-09-06 14:52 | Outpatient (CLI) | payer MEDICARE, OTHER, SELFPAY ==
--- NOTE | ~2023-09-06 | CT_ITS ---
EXAMINATION: CT sinus wo con DATE: 09/06/2023 15:15 INDICATION: Chronic sinusitis TECHNIQUE: Computed tomography (CT) of the paranasal sinuses was performed without contrast. Iterativ e reconstruction technique was employed. Exam dose: 303.98 mGy-cm total exam DLP. COMPARISON: October 26, 2015 CT sinuses FINDINGS: Slight leftward bowing of the nasal septum. There is asymmetric soft tissue swelling of the right middle and inferior nasal turbinates. Prominent intralamellar cell of right middle nasal turbinate. There are bilateral surgical nasal antral windows. There is mild mucoperiosteal thickening in the medial right frontal sinus and right frontoethmoid are a. The frontal sinuses and ethmoid air cells are otherwise clear. There is mild anterosuperior and posterior lower right maxillary focal mucoperiosteal thickening. There is severe mucoperiosteal thickening of the left maxillary antrum, almost completely opacifying this structure. The sphenoid sinuses are normally developed and aerated. The mastoid air cells are normally developed and aerated. Middle and inner ear apparatus appear endy l bilaterally. Multiple bilateral upper periapical tooth abscesses. IMPRESSION: Status post bilateral nasal antral windows Severe mucoperiosteal thickening of the left maxillary sinus Small focal areas of mucoperiosteal thickening of the anterosuperior and posteroinferior right maxill amos sinus Mild mucoperiosteal thickening along the medial right frontal sinus and right frontoethmoid area Asymmetric soft tissue swelling of the right middle and inferior nasal turbinates. Prominent intralamellar cell of right middle nasal turbinate Bilateral upper periapical tooth abscesses Reviewed, dictated and finalized at [facility]. Reviewed, dictated and finalized at location B. ICAL ANALYTICAL SAMPLER IMPRESSION: Status post bilateral nasal antral windows Severe mucoperiosteal thickening of the left maxillary sinus Small focal areas of mucoperiosteal thickening of the anterosuperior and registered nurse float pool oinferior right maxillary sinus Mild mucoperiosteal thickening along the medial right frontal sinus and right f rontoethmoid area Asymmetric soft tissue swelling of the right middle and inferior nasal turbinat es. Prominent intralamellar cell of right middle nasal turbinate Bilateral upper periapical tooth abscesses
== END 2023-09-06 14:53 | disposition home or self-care (01) ==
LOC: ANHIMG 14:52
PROVIDERS: PCP Family Medicine; Visit Provider Family Medicine
DX: J32.0 Chronic maxillary sinusitis (principal); J34.89 Other specified disorders of nose and nasal sinuses
CPT/HCPCS: 70486

== ENCOUNTER 2023-09-21 09:48 | Outpatient (CLI) | payer MEDICARE, OTHER, SELFPAY ==
--- NOTE | 2023-09-21 12:40 | P.PCNPFT_ITS ---
PFT Procedure Performed PFT Procedure Performed Plethysmography (Lung Vol) Diffusing Cap (DLCO) Flow Vol Loop Spirometry w/o Bronchodil PFT Interpretation This is a pulmonary function test with spirometry, plethysmography and diffusing capacity. The test was performed and results interpreted in accordance with the 2019 and 2005 ATS/ERS Task Force guidelines respectively using the Global Lung Function Initiative-2012 reference equations. Patient demonstrated good effort and cooperation. Reproducibility criteria were met. The quality of the spirometry maneuver was Grade A. Findings: Spirometry: The contour of the expiratory flow tracing demonstrates a mid expiratory notch in all 4 maneuvers. The contour the inspiratory flow tracing is normal. The FVC is 3.61 L, 91% predicted. The FEV1 is 2.47 L, 82% predicted. The FEV1:FVC ratio 69%. Plethysmography: The total lung capacity is 7.10 L, 111% predicted. The functional residual capacity is 3.88 L, 105% predicted. The residual volume is 2.88 L, 112% predicted. Diffusing capacity: The diffusing capacity unadjusted for hemoglobin and carboxyhemoglobin is 18.9, 77% predicted. The diffusing capacity adjusted for alveolar volume is 2.97, 76% predicted. Impression: The notched pattern has been described with coughing or tracheo bronchomalacia. Otherwise, the spirometry is normal without evidence of an obstructive abnormality. The lung volumes are normal. The diffusing capacity is normal. There are no prior studies for comparison
== END 2023-09-21 09:49 | disposition home or self-care (01) ==
LOC: ANHPFT 09:49
PROVIDERS: PCP Family Medicine; Visit Provider Internal Medicine Hematology & Oncology
DX: C34.11 Malignant neoplasm of upper lobe, right bronchus or lung (principal)
CPT/HCPCS: 94375; 94726; 94729

== ENCOUNTER 2023-10-05 07:51 | Outpatient (CLI) | payer MEDICARE, OTHER, SELFPAY ==
--- NOTE | ~2023-10-05 | PE_ITS ---
EXAMINATION: PET skull to mid thigh DATE: 10/05/2023 10:05 INDICATION: Malignant neoplasm of the right upper lobe TECHNIQUE: Blood glucose level was 180 mg/dL. 9.04 mCi of 18-fluorodeoxyglucose (18-FDG) was administ ered i.v. Low dose computed tomography (CT) images were acquired from the base of the brain to the pr oximal thighs for attenuation correction and anatomic localization. Positron emission tomography (PET ) images were acquired in the same distribution beginning 57 minutes after injection. Images includin g fused PET/CT images were reconstructed in axial, coronal, and sagittal planes. Automated exposure c ontrol technique was employed. The dose-length product was 1346.43mGy-cm. COMPARISON: Chest CT dated 08/24/2023 FINDINGS: Head/neck: There is symmetric increased activity in the oral cavity, palatine tonsils, laryngeal muscles and ocu lar muscles without CT correlate, likely physiologic. There is partial opacification of the left maxi llary sinus with asymmetric mild increased FDG uptake likely related to acute on chronic sinusitis. T here are associated bilateral antral window procedures. No pathologically enlarged cervical lymphaden opathy or suspicious foci of increased FDG uptake in the visualized head or neck. Chest: 10 mm subpleural right apical nodule with increased FDG uptake with maximal SUV of 8.4. There is lorelei tional increased FDG uptake with maximal SUV of 14.8 associated with the recently biopsied 2.8 cm nod ule in the more inferior posterior segment of the right upper lobe consistent with biopsy-proven leda ocarcinoma. There is an additional 5 mm nodule in the posterior segment of the right upper lobe locat ed slightly posterior and medial to the right upper lobe mass which is without evident FDG activity. Mild discoid atelectasis at the lingula and basilar right lower lobe. Heart size is normal. Atheroscl erotic coronary artery calcifications. No pericardial or pleural effusion. Thoracic aorta is normal i n caliber. No pathologically enlarged or FDG avid thoracic lymphadenopathy. Abdomen/pelvis/proximal thighs: Physiologic renal accumulation and excretion of FDG activity in the kidneys, bladder and along portio ns of ureters. Normal degree and heterogenous pattern of increased uptake throughout the liver withou t radiologic correlate or dominant FDG avid lesion. There are calcified gallstones within the normal gallbladder. The gallbladder, pancreas, spleen and bilateral adrenal glands are normal. Mild uptake s cattered throughout the bowels without radiologic correlate, also likely physiologic. Normal appendix . No other abnormal foci of increased FDG uptake or pathologically enlarged lymphadenopathy in the a bdomen, pelvis or proximal thighs. Musculoskeletal: Right glenohumeral hemiarthroplasty with resurfacing of the right humeral head. No suspicious lytic, blastic or FDG avid bone lesions identified. IMPRESSION: 1. Increased FDG uptake associated with the biopsy-proven 2.8 cm right upper lobe mass consistent lisbet andrea bronchogenic carcinoma. 2. Second 10 mm FDG avid subpleural nodule at the right apex for which differential would include mal ignancy either primary or metastatic or other nonspecific infectious or inflammatory etiologies. No o ther lesions in the chest, abdomen or pelvis suspicious for metastatic disease. Reviewed, dictated and finalized at location L. IMPRESSION: 1. Increased FDG uptake associated with the biopsy-proven 2.8 cm right upper lo be mass consistent primary bronchogenic carcinoma. 2. Second 10 mm FDG avid subpleural nodule at the right apex for which differen tial would include malignancy either primary or metastatic or other nonspecific infectious or inflammatory etiologies. No other lesions in the chest, abdomen or pelvis suspic
[2023-10-05 08:15] LABS: Glucose Point of Care 180 mg/dl (65-105)
== END 2023-10-05 07:52 | disposition home or self-care (01) ==
LOC: ANHIMG 07:54
PROVIDERS: PCP Family Medicine; Visit Provider Internal Medicine Hematology & Oncology
DX: C34.11 Malignant neoplasm of upper lobe, right bronchus or lung (principal)
CPT/HCPCS: 78815; A9552

== ENCOUNTER 2023-11-09 14:49 | Outpatient (CLI) | payer MEDICARE, OTHER, SELFPAY ==
[2023-11-09 15:05] LABS: Basophils Absolute Auto 0.1 K/mm3 (0.0-0.1); Basophils Percent Auto 0.7 % (0.2-1.2); Eosinophils Absolute Auto 0.6 K/mm3 (0-0.3); Eosinophils Percent Auto 5.6 % (0-4.4); Hematocrit 47.5 % (42.0-52.0); Hemoglobin 15.2 g/dL (14.0-18.0); Immature Granulocyte Absolute 0.03 K/mm3 (0.00-0.031); Immature Granulocyte Percent A 0.3 % (0-0.5); Lymphocytes Absolute Auto 2.12 K/mm3 (0.9-3.2); Lymphocytes Percent Auto 19.6 % (18.3-44.2); Mean Corpuscular Hemoglobin 28.4 pg (26-34); Mean Corpuscular Volume 88.8 fl (80-100); Mean Platelet Volume 10.7 fl (7.4-10.4); Monocytes Absolute Auto 0.9 K/mm3 (0.1-0.6); Monocytes Percent Auto 8.1 % (2.6-8.5); Neutrophils Absolute Auto 7.1 K/mm3 (1.3-6.7); Neutrophils Percent Auto 65.7 % (45.5-73.1); Platelet Count Result 258 k/mm3 (150-375); Red Blood Count 5.35 M/mm3 (4.6-6.20); Red Cell Distribution Width 16.4 % (11.5-14.5); White Blood Count 10.8 K/mm3 (4.5-10.0)
[2023-11-09 15:10] LABS: Blood Urea Nitrogen 22 mg/dL (8-26); Carbon Dioxide 26 mmol/L (22-30); Chloride 104 mmol/L (98-109); Estimated Glomerular Filt Rate > 60; Glucose 145 mg/dL (70-105); Ionized Calcium (POC) 1.21 mmol/L (1.11-1.31); Potassium 4.1 mmol/L (3.5-4.9); Sodium 143 mmol/L (138-146)
== END 2023-11-09 14:50 | disposition home or self-care (01) ==
LOC: ANHLAB 14:51
PROVIDERS: PCP Family Medicine; Visit Provider Internal Medicine Hematology & Oncology
DX: C34.11 Malignant neoplasm of upper lobe, right bronchus or lung (principal)
CPT/HCPCS: 36415; 80047; 85025

== ENCOUNTER 2023-11-15 09:35 | Outpatient (CLI) | payer MEDICARE, OTHER, SELFPAY ==
--- NOTE | ~2023-11-15 | XR_ITS ---
XR chest 2V 11/15/2023 09:56 Indication: Status post thoracentesis. History of lung cancer. Procedure: 2 view chest Comparison: Comparison to multiple prior studies sequentially, with oldest reviewed study dated 08/24. Findings: Moderate size right hydropneumothorax. There is a catheter in the right upper thorax. There is right basilar atelectasis. Left lung clear. Heart size normal. Impression: 1: Moderate right hydropneumothorax. Reviewed, dictated and finalized at location B. Impression: 1: Moderate right hydropneumothorax.
== END 2023-11-15 09:36 | disposition home or self-care (01) ==
PROVIDERS: PCP Family Medicine
DX: J94.8 Other specified pleural conditions (principal); Z98.890 Other specified postprocedural states; Z85.118 Personal history of other malignant neoplasm of bronchus and lung
CPT/HCPCS: 71046

== ENCOUNTER 2024-04-17 08:19 | Outpatient (CLI) | payer MEDICARE, SELFPAY ==
--- NOTE | ~2024-04-17 | CT_ITS ---
Clinical Indication: Lung cancer CT Scan of the Chest with Contrast: Technique: Contiguous sections were acquired throughout the chest after intravenous administration of 75 cc of Omnipaque 350. Dose reduction technique was used on this scan by utilizing automated exposu re control and iterative reconstruction technique. The dose-length product (DLP) was 698.19 mGy-cm. COMPARISON: 08/24/2023 Findings: There is no evidence of any significant mediastinal, hilar or axillary lymphadenopathy. There is no f illing defect in the pulmonary arterial tree to suggest pulmonary embolus. There is no evidence of ao rtic dissection or aneurysm. No pericardial effusion. No left pleural effusion. Status post interval right upper lobectomy. There is mild postoperative scarring/distortion in the ri ght lung. There is mild pleural thickening and/or minimal circumferential loculated right pleural eff usion. There are minimal groundglass opacities at the left lung base. Images through the upper abdomen reveal calcified gallstones. Impression: Status post interval right upper lobectomy. No evidence for active malignancy or metastatic disease. Mild right hemithorax pleural thickening and/or minimal loculated right pleural effusion. Correlate f or any history of pleurodesis. Minimal groundglass opacities left lung base are likely hypoventilatory or inflammatory in nature. Cholelithiasis. Reviewed, dictated and finalized at location . Impression: Status post interval right upper lobectomy. No evidence for active malignancy o r metastatic disease. Mild right hemithorax pleural thickening and/or minimal loculated right pleural effusion. Correlate for any history of pleurodesis. Minimal groundglass opacities left lung base are likely hypoventilatory or infl ammatory in nature. Cholelithiasis.
[2024-04-17 08:42] LABS: Estimated Glomerular Filt Rate > 60
== END 2024-04-17 08:20 | disposition home or self-care (01) ==
LOC: ANHIMG 08:21
PROVIDERS: PCP Family Medicine; Visit Provider Internal Medicine Hematology & Oncology
DX: C34.11 Malignant neoplasm of upper lobe, right bronchus or lung (principal); Z90.2 Acquired absence of lung [part of]; J94.2 Hemothorax; K80.20 Calculus of gallbladder without cholecystitis without obstruction
CPT/HCPCS: 71260; Q9967

== ENCOUNTER 2024-06-28 07:17 | Outpatient (CLI) | payer MEDICARE, SELFPAY ==
--- NOTE | ~2024-06-28 | XR_ITS ---
EXAMINATION: XR wrist RT min 3V DATE: 06/28/2024 07:45 INDICATION: Right wrist pain. TECHNIQUE: 4 views of right wrist were obtained. COMPARISON: None. FINDINGS: Alignment is normal. No fracture. There is mild osteoarthritis of triscaphe joint and first carpometacarpal joint. IMPRESSION: 1. Mild polyarticular osteoarthritis. Reviewed, dictated and finalized at location A. 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
== END 2024-06-28 07:18 | disposition home or self-care (01) ==
PROVIDERS: PCP Family Medicine; Visit Provider Physician Assistant Medical
DX: M19.031 Primary osteoarthritis, right wrist (principal); M25.531 Pain in right wrist
CPT/HCPCS: 73110

== ENCOUNTER 2024-07-06 06:38 | Outpatient (CLI) | payer MEDICARE, SELFPAY ==
[2024-07-06 07:30] LABS: Cholesterol 115 mg/dL (0-200); HDL Direct 38 mg/dL; Triglycerides 224 mg/dL (<150)
[2024-07-06 07:41] LABS: LDL Cholesterol Direct 41 mg/dL
[2024-07-06 08:01] LABS: Prostate Specific Antigen 3.1 ng/mL (< OR = 4.0)
[2024-07-06 09:42] LABS: Creatinine Urine 62.5 mg/dL
[2024-07-06 09:46] LABS: MALB Creatinine Ratio 176.3 mg/g (0-30); Microalbumin Urine Random 110.2 mg/L (0-16.7)
== END 2024-07-06 06:39 | disposition home or self-care (01) ==
LOC: ANHLAB 06:39
PROVIDERS: PCP Family Medicine; Visit Provider Nurse Practitioner Family
DX: E29.1 Testicular hypofunction (principal); E11.9 Type 2 diabetes mellitus without complications; Z53.20 Procedure and treatment not carried out because of patient's decision for unspecified reasons; Z12.5 Encounter for screening for malignant neoplasm of prostate; E34.9 Endocrine disorder, unspecified; C80.1 Malignant (primary) neoplasm, unspecified
CPT/HCPCS: 36415; 80061; 82043; 84153; 84443; G0103

== ENCOUNTER 2024-09-20 14:30 | Outpatient (RCR) | payer MEDICARE, SELFPAY | END 2024-09-25 09:01 | disposition home or self-care (01) | LOC: ANHDMC 14:30 | PROVIDERS: PCP Family Medicine; Visit Provider Nurse Practitioner Adult Health | DX: E11.65 Type 2 diabetes mellitus with hyperglycemia (principal); Z71.89 Other specified counseling | CPT/HCPCS: G0108; G0109 ==

== ENCOUNTER 2024-10-17 08:26 | Outpatient (CLI) | payer MEDICARE, SELFPAY ==
--- NOTE | ~2024-10-17 | CT_ITS ---
EXAMINATION:CT diagnostic chest w con DATE: 10/17/2024 09:03 INDICATION: Malignant neoplasm of right lung upper lobe. TECHNIQUE: Computed tomography (CT) of the chest was performed with 75 mL Omnipaque 350 intravenous c ontrast. Automated exposure control and iterative reconstruction technique were employed. The dose-le ngth product (DLP) was 802.90 mGy-cm. COMPARISON: Chest CT 04/17/2024 FINDINGS: There are changes of right upper lobectomy. There is mild atelectasis bilaterally. There is a 4 mm nodule in left lower lobe, probably benign. No pleural effusion. The heart size is normal. Th ere are coronary artery calcifications. No pericardial effusion. There is a stable 6 mm hyperdense ma ss in right hepatic lobe, benign. There are gallstones in the gallbladder, which is normal in size. T here is a 7 mm cyst in left kidney. There is a right shoulder arthroplasty. There is mild thoracic sp ondylosis. IMPRESSION: 1. New 4 mm nodule in left lung lower lobe, which is indeterminate for metastatic disease. Reviewed, dictated and finalized at location A. IMPRESSION: 1. New 4 mm nodule in left lung lower lobe, which is indeterminate for metastat ic disease.
--- OUTSIDE RECORDS SUMMARY | 2024-10-17 08:56 | XMS_ITS | Clinical Summary ---
Author Organization [facility] Address [address] [place] [address] Phone Care Team Providers Care Laborer Heading Name Role Phone Manohar Gann MD Primary Care Provider [phone] Allergies Active Allergy Reactions Criticality Noted Date Comments Clarithromycin Other (See Comments) 09/16/2023 Testicle swelling Medications rosuvastatin (CRESTOR) 40 mg tablet Take 40 mg by mouth daily. Active empagliflozin (Jardiance) 25 mg tablet Take 25 mg by mouth daily in the morning. Active aspirin (ECOTRIN EC) 81 mg Tablet, Delayed Release (E.C.) Take 81 mg by mouth daily. Active multivitamin (DAILY-KATYA) tablet Take 1 Tablet by mouth daily. Active RYBELSUS ORAL 14 Grams. 4 Active metoprolol succinate (TOPROL XL) 50 mg Extended Release 24 hour tablet Take 0.5 Tablets (25 mg) by mouth daily. 30 Tablet 4 Active dexAMETHasone (DECADRON) 4 mg tablet Take 1 Tablet (4 mg) by mouth 2 times daily starting the day before treatment, day of treatment, and day after treatment for each cycle. 6 Tablet 4 Active gabapentin (NEURONTIN) 100 mg capsule TAKE 2 CAPSULES(200 MG) BY MOUTH THREE TIMES DAILY 180 Capsule 1 4 Active levoFLOXacin (LEVAQUIN) 500 mg tablet Take 1 Tablet by mouth daily. 4 Active Active Problems Problem Noted Date Diagnosed Date Pneumothorax on right 11/18/2023 Adenocarcinoma of upper lobe of right lung 10/05 Benign hypertension 10/06/2023 DM (diabetes mellitus), type 2 10/06/2023 Encounters Date Type Department Care Team Description 10/16/2024 Orders Only [facility] Oncology and Hematology - [address] Bryce Lema MD Malignant neoplasm of upper lobe of right lung (CMS/HCC) 10/11/2024 External Device Data STL ABSTRACTION Provider, Abstract 10/09/2024 Orders Only [facility] Oncology and Hematology - [address] Bryce Lema MD Malignant neoplasm of upper lobe of right lung (CMS/HCC) 10/02/2024 Orders Only [facility] Oncology and Hematology - [address] Bryce Lema MD Malignant neoplasm of upper lobe of right lung (CMS/HCC) 09/30/2024 External Device Data STL ABSTRACTION Provider, Abstract 09/29/2024 External Device Data STL ABSTRACTION Provider, Abstract 09/26/2024 External Device Data STL ABSTRACTION Provider, Abstract 09/25/2024 Orders Only [facility] Oncology and Hematology - [address] [place] [phone] Bryce Lema MD Malignant neoplasm of upper lobe of right lung (CMS/HCC) 09/18/2024 Orders Only [facility] Oncology and Hematology - [address] Bryce Lema MD Malignant neoplasm of upper lobe of right lung (CMS/HCC) 09/12/2024 External Device Data STL ABSTRACTION Provider, Abstract 09/11/2024 Orders Only [facility] Oncology and Hematology - [address] [place] [phone] Bryce Lema MD Malignant neoplasm of upper lobe of right lung (CMS/HCC) 09/04/2024 [facility] Oncology and Hematology - [address] [place] [phone] Bryce Lema MD Malignant neoplasm of upper lobe of right lung (CMS/HCC) 08/29/2024 External Device Data STL ABSTRACTION Provider, Abstract 08/28/2024 Orders Only [facility] Oncology and Hematology - [address] [place] [phone] Bryce Lema MD Malignant neoplasm of upper lobe of right lung (CMS/HCC) 08/21/2024 Orders Only [facility] Oncology and Hematology - [address] [place] [phone] Bryce Lema MD Malignant neoplasm of upper lobe of right lung (CMS/HCC) 08/17/2024 External Device Data STL ABSTRACTION Provider, Abstract 08/16/2024 External Device Data STL ABSTRACTION Provider, Abstract 08/15/2024 External Device Data STL ABSTRACTION Provider, Abstract 08/14/2024 Orders Only [facility] Oncology and Hematology - [address] Bryce Lema MD Malignant neoplasm of upper lobe of right lung (CMS/HCC) 08/08/2024 External Device Data STL ABSTRACTION Provider, Abstract 08/08/2024 Orders Only [facility] Oncology and Hematology - [address] [place] [address] Bryce Lema MD 08/07/2024 10:00 AM REHAB DIRECTOR Office Visit [facility] Oncology and Hematology - [address] [place] [address] Bryce Lema MD Malignant neoplasm of upper lobe of right lung (CMS/HCC) 08/07/2024 Orders Only [facility] Oncology and Hematology - [address] [place] [address] Bryce Lema MD 07/31/2024 Orders Only [facility] Oncology and Hematology - [address] [place] [address] rByce Lema MD Malignant neoplasm of upper lobe of right lung (CMS/HCC) 07/27/2024 Telephone [facility] Oncology and Hematology - [address] [place] [address] Bryce Lema MD Case Management 07/24/2024 Orders Only [facility] Oncology and Hematology - [address] [place] [id number] Bryce Lema MD Malignant neoplasm of upper lobe of right lung (CMS/HCC) from Last 3 Months Family History Medical History Relation Name Comments No Known Problems Brother 1 No Known Problems Brother 2 No Known Problems Child No Known Problems Father Diabetes Mother Heart Disease Mother No Known Problems Sister Relation Name Status Comments Brother 1 Alive Brother 2 Alive Child Alive Father Mother Sister Alive Social History Tobacco Use Types Packs/Day Years Used Date Smoking Tobacco: Former Cigarettes 1 50 Q uit: 10/25/2023 Tobacco Cessation:Counseling Given: Not Answered Alcohol Use Standard Drinks/Week Comments Yes 0 (1 standard drink = 0.6 oz pur e alcohol) Socially Feeling Safe Answer Date Recorded Are you in a relationship wi th someone who hurts you emotionally and/or physically? No 11/18/2023 Food Insecurity Answer Date Recorded Social/Environmental Concerns No concerns Transportation Needs Answer Date Record ed Social/Environmental Concerns No concerns Housing Stability Answer Date Recorded Social/Environmental Concerns No concerns Utility Needs Answer Date Recorded Social/Environmental Concerns No concerns Sex and Gender Information Value Date Recorded Sex Assigned at Not on file Legal Sex Male 6:06 AM REHAB DIRECTOR Gender Identity Not on file Sexual Orientation Not on file Last Filed Vital Signs Vital Sign Reading Time Taken Comments Blood Pressure 135/87 08/07/2024 9:45 AM REHAB DIRECTOR Pulse 79 08/07/2024 9:42 AM REHAB DIRECTOR Temperature 36.3 C (97.4 F) 08/07/2024 9:42 AM REHAB DIRECTOR Respiratory Rate 15 08/07/2024 9:42 AM REHAB DIRECTOR Oxygen Saturation 94% 08/07/2024 9:42 AM REHAB DIRECTOR Inhaled Oxygen Concentration - - Weight 131 kg (288 lb 12.8 oz) 08/07/2024 9:42 A M REHAB DIRECTOR Height 185.4 cm (6' 1 ) 12/08/2023 10:55 AM CDT Body Mass Index 38.1 12/08/2023 10:55 AM CDT Plan of Treatment Upcoming Encounters Date Type Department Care Team (Late st Contact Info) Description 10/24/2024 10:00 AM CDT Office Visit [facility] Oncology and Hematology - [place] [facility] [address] [place] [address] Bryce Lema MD [address] [facility] [address] [place] [address] Health Maintenance Due Date Last Done Comments DIABETES ANNUAL FOOT EXAM 11/10/1973 DIABETES ANNUAL RETINAL EXAM 11/10/1973 DIABETES MICROALBUMIN ANNUAL SCREEN 11/10/1973 DTAP/TDAP/TD VACCINES (1 - Tdap) 11/10/1974 FIT-DNA Q 3 years 11/10/2000 FIT/FOBT Q 1 year 11/10/2000 Flex Sig/CT Colonography Q 5 years 11/10/2000 ZOSTER VACCINE (1 of 2) 11/10/2005 PNEUMOCOCCAL VACCINE 50+ YEA RS (2 of 2 - PCV) 04/17/2012 04/17/2011 LDL CHOLESTEROL ANNUAL 06/26/2012 06/26/2011 RSV VACCINE (60+ or ) (1 - Risk 60-74 years 1-dose series) 2015 Abdominal Aortic Aneurysm (A AA) Screening 11/10/2020 INFLUENZA VACCINE (#1) 2024 DIABETES HBA1C Q 6 MONTHS 04/07/20242023, 09/30/2023, 06/24/2023, Additional history exists [place] Preventative Visit/Annual Wellness Visit 07/26/2024 COLORECTAL SCREENING 12/10/2032 12/10/2022 Colorectal Cancer Screening 12/10/2032 Medical Devices Implanted Type Area Pickling Tank Operator Device Identifier Shelf Expiration Date Model / Serial / Lot Clip Ligating Horizon Lg Ti [id number] - Csc - [id number] Implanted:Qty : 1 on 10/19/2023 by Benji Olson MD at [facility] Clip Right: Chest TELEFLEX- WECK CLOSURE SYS 11/15/2023 [id number] / / [id number] Clip Ligating Horizon Med Ti [id number] - Csc - [id number] Implanted:Qty : 2 on 10/19/2023 by Benji Olson MD at [facility] Clip Right: Chest TELEFLEX- WECK CLOSURE SYS 12/15/2027 [id number] / / [id number] Clip Ligating Horizon Med Ti [id number] - Csc - [id number] Implanted:Qty : 1 on 10/19/2023 by Benji Olson MD at [facility] Clip Right: Chest TELEFLEX- WECK CLOSURE SYS 09/30/2027 [id number] / / [id number] Clip Ligating Horizon Med Ti [id number] - Csc - [id number] Implanted:Qty : 2 on 11/25/2023 by Benji Olson MD at [facility] Clip TELEFLEX- WECK CLOSURE SYS [id number] 07/05/2028 [id number] / / [id number] Clip Ligating Horizon Lg Ti [id number] - Csc - [id number] Implanted:Qty : 1 on 11/25/2023 by Benji Olson MD at [facility] Clip Right: Chest TELEFLEX- WECK CLOSURE SYS 01/28/2028 [id number] / / [id number] Sealant Progel Pleural 4ml [id number] - [id number] Implanted:Qty : 1 on 10/19/2023 by Benji Olson MD at [facility] Tissue Right: Lung BARD DAVOL [id number] 10/16/2024 [id number] / / [id number] Sealant Progel Pleural 4ml [id number] - [id number] Implanted:Qty : 1 on 11/25/2023 by Benji Olson MD at [facility] Tissue Right: Chest BARD DAVOL [id number] 02/23/2025 [id number] / / [id number] Procedures Procedure Name Priority Date/Time Associated Diagnosis Comments CBC WITH DIFFERENTIAL Routine 08/07/2024 4:25 PM REHAB DIRECTOR COMPREHENSIVE METABOLIC PANEL Routine 08/07/2024 1:23 PM REHAB DIRECTOR BASIC METABOLIC PANEL Routine 08/07/2024 12:05 PM REHAB DIRECTOR HEMOGLOBIN A1C Routine 10/06/2023 12:24 PM CDT LIPID PANEL Routine 06/26/2011 7:55 AM REHAB DIRECTOR Laboratory examination, unspecified from Last 3 Months or Most Recently Relevant to Health Maintenance Results * CBC WITH DIFFERENTIAL (08/07/2024 4:25 PM REHAB DIRECTOR) Blood us Bryce Lema MD HEMATOLOGY ORDERABLES Final Res ult * COMPREHENSIVE METABOLIC PANEL (08/07/2024 1:23 PM REHAB DIRECTOR) Blood us Bryce Lema MD CHEMISTRY ORDERABLES Final Resu lt * BASIC METABOLIC PANEL (08/07/2024 12:05 PM REHAB DIRECTOR) Blood us Bryce Lema MD CHEMISTRY ORDERABLES Final Resu lt * (ABNORMAL) HEMOGLOBIN A1C (10/06/2023 12:24 PM CDT) HEMOGLOBIN A1C 8.2(H) <5.7 % 10/06/2023 1:13 PM CDT [facility] EST. AVG GLUCOSE, A1C 189 mg/dL 10/06/2023 1:13 PM CDT [facility] Blood Venipuncture / Unknown 10/06/2023 12:24 PM CDT 10/06/2023 12:51 PM CDT Narrative [facility] - 10/06/2023 1:13 PM CDT HGB A1C INTERPRETATION NORMAL: <5.7% PRE-DIABETES: 5.7 - 6.4% DIABETES: 6.5% OR GREATER Debra Dunn PA-C CHEMISTRY ORDERABLES Final R esult [facility] CLIA# [id number] [address] [place] [address] * (ABNORMAL) LIPID PANEL (06/26/2011 7:55 AM REHAB DIRECTOR) CHOLESTEROL 174 100 - 199 mg/dL [facility] TRIGLYCERIDE 172(H) 10 - 149 mg/dL [facility] HDL 36(L) 40 - 59 mg/dL [facility] CHOL/HDL RATIO 4.8 2.0 - 5.0 [facility] LDL CALCULATED 104(H) <=99 mg/dL [facility] LIPID PANEL COMMENT See Below [facility] Comment: The adult ATP and pediatric NCEP classifications for lipids are available in the Laboratory Services Policy Manual on the [facility] Intranet at: http://GuidesMob-intranet.[facility]/ Blood specimen (specimen) 06/26/2011 7:55 AM REHAB DIRECTOR 06/26/2011 5:50 PM REHAB DIRECTOR [employer] CHEMISTRY ORDERABLES Edited [facility] NATACHA# [id number] [address] [place] [address] from Last 3 Months or Most Recently Relevant to Health Maintenance Insurance [employer] [facility] RX [employer] PLANS (INTERNAL) [facility] Internal Plans Advance Directives For more information, please contact: [phone] * Full Code (Latest Code Status on File) Date Activated Date Inactivated Comments 11/25/2023 6:06 PM 11/30/2023 4:40 PM * Full Code Date Activated Date Inactivated Comments 11/25/2023 1:05 PM 11/25/2023 6:06 PM * Full Code Date Activated Date Inactivated Comments 11/24/2023 9:01 AM 11/25/2023 1:05 PM * Full Code Date Activated Date Inactivated Comments 11/18/2023 10:12 AM 11/24/2023 9:01 AM * Full Code Date Activated Date Inactivated Comments 10/19/2023 6:49 PM 10/22/2023 4:46 PM Care Teams Laborer Heading Relationship Specialty Start Date End Date Manohar Gann MD [address] [place] [phone] PCP - General Family Practice 09/16/23
--- OUTSIDE RECORDS SUMMARY | 2024-10-17 08:56 | XMS_ITS | Encounter Summary ---
Author Organization [facility] Address [address] [place] [address] Care Team Providers Care Puzzle Assembler Name Role Phone Manohar Gann MD Primary Care Provider Encounter Details Date Type Department Care Team (Late Contact Info) Description 10/16/2024 Orders Only [facility] Oncology and Hematology - [place] [place] [address] Bryce Lema MD [address] [facility] [address] [place] [address] Malignant neoplasm of upper lobe of right lung (CMS/HCC) Social History Tobacco Use Types Packs/Day Years Used Date Smoking Tobacco: Former Cigarettes 1 50 Q uit: 10/25/2023 Alcohol Use Standard Drinks/Week Comments Yes 0 [...] on file Legal Sex Male 6:06 AM 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 Gender Identity Not on file Sexual Orientation Not on file documented as of this encounter Plan of Treatment Upcoming Encounters Date Type Department Care Team (Late st Contact Info) Description 10/24/2024 10:00 AM CDT Office Visit [facility] Oncology and Hematology - [place] [place] [address] Bryce Lema MD [address] [facility] [address] [place] [address] documented as of this encounter Visit Diagnoses Diagnosis Malignant neoplasm of upper lobe of right lung (CMS/HCC) Malignant neoplasm of upper lobe, bronchus or lung documented in this encounter Care Teams Puzzle Assembler Relationship Specialty Start Date End Date Manohar Gann MD [address] [place] [address] PCP - General Family Practice 09/16/23 documented as of this encounter
--- OUTSIDE RECORDS SUMMARY | 2024-10-17 08:56 | XMS_ITS | Clinical Summary ---
Author Organization [facility] Address [address] [place] [address] Care Team Providers Care Recruiting Consultant Name Role Phone Manohar Gann MD Primary Care Provider [phone] Source Comments [facility] Affiliates and Associated Physician Practices is amultiple site organization consisting of ambulatory clinics and hospital sitesin [place] and [place]. This disclosure is being madepursuant to the Care Everywhere program and may not contain all information available regarding this patient. Last updated 18.[facility] [employer] Allergies Active Allergy Reactions Criticality Noted Date Comments Clarithromycin 04/16/2011 Urinary tract issues Medications * Be aware that medications may not be up to date on this document. Alwaysverify current medications with the patient. Medication Sig Dispensed Refills Start Date End Date Status aspirin 81 MG chew tablet Take 81 mg by mouth once daily. Active multivitamin daily (THERAGRAN) tablet Take 1 Tab by mouth daily with food. Active hydrochlorothiazide (HYDRODIURIL) 25 MG tablet Take 25 mg by mouth once daily. Active choline fenofibrate (TRILIPIX) 135 MG capsule Take 135 mg by mouth once daily. Active ciprofloxacin (CIPRO) 500 MG tablet Take 1 Tab by mouth 2 times daily. 14 Tab 0 11/14/2012 Active Active Problems Problem Noted Date Diagnosed Date UTI (urinary tract infection) 11/14/2012 Immunizations Name Administration Dates Next Due INFLUENZA VACCINE 04/17/2011 PNEUMOCOCCAL PPSV23 04/17/2011 Social History Tobacco Use Types Packs/Day Years Used Date Smoking Tobacco: Every Day Cigarettes 1 40 Smokeless Tobacco: Never Tobacco Cessation:Ready to Q uit: Yes; Counseling Given: Yes Comments:cessation packet given Alcohol Use Standard Drinks/Week Comments Yes 3.3 (1 standard drink = 0.6 oz p ure alcohol) Sex and Gender Information Value Date Recorded Sex Assigned at Not on file Gender Identity Not on file Sexual Orientation Not on file Last Filed Vital Signs Vital Sign Reading Time Taken Comments Blood Pressure 157/100 11/14/2012 7:25 PM CDT Pulse 80 11/14/2012 7:25 PM CDT Temperature 37.1 C (98.7 F) 11/14/2012 7:25 PM CDT Respiratory Rate 16 11/14/2012 7:25 PM CDT Oxygen Saturation 96% 11/14/2012 7:25 PM CDT Inhaled Oxygen Concentration - - Weight 127 kg (280 lb) 11/14/2012 4:48 PM CDT Height 185.4 cm (6' 1 ) 11/14/2012 4:48 PM CDT Body Mass Index 36.94 11/14/2012 4:48 PM CDT Plan of Treatment Health Maintenance Due Date Last Done Comments COLOGUARD (AGES 45-75) - COL ON CA SCREENING 1955 COLON MONITORING 1955 COLONOSCOPY - COLON CA SCREENING 1955 CT COLONOGRAPHY - COLON CA SCREENING 1955 Colorectal Cancer Screening 1955 FIT - COLON CA SCREENING 1955 FLEX SIG - COLON CA SCREENING 1955 MEDICARE AWV 12 MONTHS 1955 HEPATITIS C SCREENING 11/06/1973 DTAP/TDAP/TD VACCINES (1 - Tdap) 11/10/1974 ZOSTER VACCINE (1 of 2) 11/10/2005 PNEUMOCOCCAL VACCINE 50+ (2 of 2 - PCV) 04/17/2012 04/17/2011 LIPID TESTING 04/17/2016 04/17/2011 AAA SCREENING 11/10/2020 COVID-19 VACCINE (1 - 2023-2 5 season) 2024 INFLUENZA VACCINE (#1) 2024 04/17/2011 DEPRESSION SCREENING 07/26/2024 Respiratory Syncytial Virus (RSV) Vaccine Pt: or over 60 yrs (1 - 1-dose 75+ series) 11/10/2030 HEPATITIS B VACCINE Aged Out No longe r eligible based on patient's age to complete this topic HIB VACCINE Aged Out No longer eligi ble based on patient's age to complete this topic HPV VACCINE Aged Out No longer eligi ble based on patient's age to complete this topic MENINGOCOCCAL (Group B) VACC INE SHARED DECISION-MAKING Aged Out No longer eligibl e based on patient's age to complete this topic MENINGOCOCCAL GROUPS A/C/Y/W VACCINE Aged Out No longer eligible b ased on patient's age to complete this topic Procedures Procedure Name Priority Date/Time Associated Diagnosis Comments LIPID PROFILE Routine 04/17/2011 3:14 AM CDT Chest pain from Last 3 Months or Most Recently Relevant to Health Maintenance Results * (ABNORMAL) LIPID PROFILE (04/17/2011 3:14 AM CDT) Cholesterol 143 SEE BELOW mg/dL [facility] Comment:120-200 Triglycerides 149 SEE BELOW mg/dL [facility] Comment:40-160 HDL Cholesterol 28(L) SEE BELOW mg/dL [facility] Comment:>55 CAD* LDL Calculated 85 SEE BELOW mg/dL [facility] Comment: 70-130 <100 CAD* Cholesterol Risk Factor 1.82 SEE BELOW [facility] Comment: Average=1.0 <1.0=Less Risk >1.0=More Risk Comment Lipid [facility] Comment: CAD* In Coronary Artery Disease patients,including those with Ischemic Stroke, in whom nonpharmacological therapy has failed, the AHA recommends that drug therapy should be prescribed to lower the LDL cholesterol to <100mg/dl and may be instituted in patients with HDL <35mg/dl. BLOOD SPECIMEN / Unknown 04/17/2011 3:14 AM CDT 04/17/2011 3:57 AM CDT Jeannine Mayo ASP WEB DEVELOPER-TRAFFIC WORKFORCE REPRESENTATIVE LAB - CHEMISTRY OR DERABLES [facility] [address] [place] [address] from Last 3 Months or Most Recently Relevant to Health Maintenance Advance Directives * FULL RESUSCITATION (Latest Code Status on File) Date Activated Date Inactivated Comments 04/16/2011 7:02 PM 04/18/2011 1:02 AM Care Teams Recruiting Consultant Relationship Specialty Start Date End Date Manohar Gann MD [address] [place] [address] PCP - General 04/16/11
--- OUTSIDE RECORDS SUMMARY | 2024-10-17 08:56 | XMS_ITS ---
Author Organization [facility] Address [address] [place] [address] Phone Care Team Providers Care Speech Language Pathologist Assistant Name Role Phone Manohar Gann MD Primary Care Provider Active Problems Problem Noted Date Diagnosed Date Pneumothorax on right 11/18/2023 Adenocarcinoma of upper lobe of right lung 10/05 Benign hypertension 10/06/2023 DM (diabetes mellitus), type 2 10/06/2023 Current Treatment and Therapy Plans No current plan information found. Past Treatment and Therapy Plans No past plan information found. Lifetime Dose Tracking * Chemical Lifetime Dose Automatic Entry Manual Entr y Effective Dose 5.4 mSv 5.4 mSv 0 mSv Total DLP 385.79 DLP 385.79 DLP 0 DLP CTDIvol Max 9.07 mGy 9.07 mGy 0 mGy
[2024-10-17 08:58] LABS: Estimated Glomerular Filt Rate 55
== END 2024-10-17 08:27 | disposition home or self-care (01) ==
PROVIDERS: PCP Family Medicine; Visit Provider Internal Medicine Hematology & Oncology
DX: R91.1 Solitary pulmonary nodule (principal); C34.11 Malignant neoplasm of upper lobe, right bronchus or lung
CPT/HCPCS: 71260; Q9967

== ENCOUNTER 2024-11-02 09:48 | Outpatient (CLI) | payer MEDICARE, SELFPAY ==
--- NOTE | ~2024-11-02 | XR_ITS ---
XR chest 2V 11/02/2024 10:11 Indication: Malignant neoplasm right lung. Wheezing and cough for 2 days. Shortness of breath. Procedure: 2 view chest Comparison: Comparison to multiple prior studies sequentially, with oldest reviewed study dated 03/2024. Findings: Heart size normal. Status post partial right pneumonectomy with surgical changes present. T here is tenting of the right diaphragm. No acute focal pneumonia, edema, pleural effusion or pneumoth orax. Impression: 1: No acute cardiopulmonary disease. Reviewed, dictated and finalized at location A. Impression: 1: No acute cardiopulmonary disease.
--- OUTSIDE RECORDS SUMMARY | 2024-11-02 10:24 | XMS_ITS ---
Author Organization [facility] Address [address] [place] [address] Phone Care Team Providers Care Editing Intern Name Role Phone Manohar Gann MD Primary Care Provider [phone] Active Problems Problem Noted Date Diagnosed Date [...]
--- OUTSIDE RECORDS SUMMARY | 2024-11-02 10:24 | XMS_ITS | Clinical Summary ---
Author Organization [facility] Address [address] [place] [address] Care Team Providers Care Precinct Captain Name Role Phone Manohar Gann MD Primary Care Provider [phone] Source Comments [facility] Affiliates and Associated Physician Practices is amultiple site organization consisting of ambulatory clinics and hospital sitesin [place], [place], [place] and [place]. This disclosure is being madepursuant to the Care Everywhere program and may not contain all information available regarding this patient. Last updated 18.[facility] [employer] Allergies Active Allergy Reactions Criticality Noted Date [...] VACCINE (1 - 2023-2 5 season) 2024 DEPRESSION SCREENING 07/26/2024 INFLUENZA VACCINE (Season Ended) 2025 04/17/20 11 Respiratory Syncytial Virus (RSV) Vaccine Pt: or [...] LABORATORY Comment:120-200 Triglycerides 149 SEE BELOW mg/dL [facility] Comment:40-160 HDL Cholesterol 28(L) SEE BELOW [...] CDT 04/17/2011 3:57 AM CDT Jeannine Mayo MEDICAL RECORD TECHNICIAN-SOLE CEMENTER LAB - CHEMISTRY OR DERABLES [facility] [address] [place] [address] from Last 3 Months or Most Recently Relevant to Health Maintenance Advance Directives * FULL RESUSCITATION (Latest Code Status on File) Date Activated Date Inactivated Comments 04/16/2011 7:02 PM 04/18/2011 1:02 AM Care Teams Precinct Captain Relationship Specialty Start Date End Date Manohar Gann MD [address] [place] [address] PCP - General 04/16/11
--- OUTSIDE RECORDS SUMMARY | 2024-11-02 10:24 | XMS_ITS | Clinical Summary ---
Author Organization [facility] Address [address] [place] [address] Phone Care Team Providers Care Health Professional Name Role Phone Manohar Gann MD Primary Care Provider [phone] Allergies Active Allergy Reactions Criticality Noted Date [...] for each cycle. 6 Tablet 4 Active levoFLOXacin (LEVAQUIN) 500 mg tablet Take 1 Tablet by mouth daily. 4 Active Active Problems Problem Noted Date Diagnosed Date Pneumothorax on right 11/18/2023 Adenocarcinoma of upper lobe of right lung 10/05 Benign hypertension 10/06/2023 DM (diabetes mellitus), type 2 10/06/2023 Encounters Date Type Department Care Team Description 10/30/2024 Orders Only [facility] Oncology and Hematology - [place]ri [address] [place] [address] Bryce Lema MD Malignant neoplasm of upper lobe of right lung (CMS/HCC) 10/24/2024 10:00 AM CDT Office Visit [facility] Oncology and Hematology - Karri [address] [place] [id number] Bryce Lema MD Malignant neoplasm of upper lobe of right lung (CMS/HCC) (Primary Dx) 10/24/2024 Orders Only [facility] Oncology and Hematology - Karri [address] Bryce Lema MD 10/23/2024 Orders Only [facility] Oncology and Hematology - [place]ri [address] [place] [id number] Bryce Lema MD Malignant neoplasm of upper lobe of right lung (CMS/HCC) 10/18/2024 Orders Only [facility] Oncology and Hematology - Karri [address] Bryce Lema MD 10/16/2024 Orders Only [facility] Oncology and Hematology - Karri [address] [place] [id number] Bryce Lema MD Malignant neoplasm of upper lobe of right lung (CMS/HCC) 10/11/2024 External Device Data STL ABSTRACTION Provider, Abstract 10/09/2024 Orders Only [facility] Oncology and Hematology - Karri [address] [place] [phone] Bryce Lema MD Malignant neoplasm of upper lobe of right lung (CMS/HCC) 10/02/2024 Orders Only [facility] Oncology and Hematology - Karri [address] [place] [address] Bryce Lema MD Malignant neoplasm of upper lobe of right lung (CMS/HCC) 09/30/2024 External Device Data STL ABSTRACTION Provider, Abstract 09/29/2024 External Device Data STL ABSTRACTION Provider, Abstract 09/26/2024 External Device Data STL ABSTRACTION Provider, Abstract 09/25/2024 Orders Only [facility] Oncology and Hematology - [place]ri [address] Bryce Lema MD Malignant neoplasm of upper lobe of right lung (CMS/HCC) 09/18/2024 Orders Only [facility] Oncology and Hematology - Karri [address] Bryce Lema MD Malignant neoplasm of upper lobe of right lung (CMS/HCC) 09/12/2024 External Device Data STL ABSTRACTION Provider, Abstract 09/11/2024 Orders Only [facility] Oncology and Hematology - Karri [address] Bryce Lema MD Malignant neoplasm of upper lobe of right lung (CMS/HCC) 09/04/2024 Orders Only [facility] Oncology and Hematology - Karri [address] Bryce Lema MD Malignant neoplasm of upper lobe of right lung (CMS/HCC) 08/29/2024 External Device Data STL ABSTRACTION Provider, Abstract 08/28/2024 Orders Only [facility] Oncology and Hematology - Karri [address] [place] [phone] Bryce Lema MD Malignant neoplasm of upper lobe of right lung (CMS/HCC) 08/21/2024 Orders Only [facility] Oncology and Hematology - Karri [address] Bryce Lema MD Malignant neoplasm of upper lobe of right lung (CMS/HCC) 08/17/2024 External Device Data STL ABSTRACTION Provider, Abstract 08/16/2024 External Device Data STL ABSTRACTION Provider, Abstract 08/15/2024 External Device Data STL ABSTRACTION Provider, Abstract 08/14/2024 Orders Only [facility] Oncology and Hematology - Karri [address] Bryce Lema MD Malignant neoplasm of upper lobe of right lung (CMS/HCC) 08/08/2024 External Device Data STL ABSTRACTION Provider, Abstract 08/08/2024 Orders Only [facility] Oncology and Hematology [address] [place] [address] Bryce Lema MD 08/07/2024 10:00 AM PHYSICIAN CODER Office Visit [facility] Oncology and Hematology [address] [place] [address] Bryce Lema MD Malignant neoplasm of upper lobe of right lung (CMS/HCC) 08/07/2024 Orders Only [facility] Oncology and Hematology - [address] [place] [address] Bryce Lema MD from Last 3 Months Family History Medical [...] on file Legal Sex Male 6:06 AM PHYSICIAN CODER Gender Identity Not on file Sexual Orientation Not on file Last Filed Vital Signs Vital Sign Reading Time Taken Comments Blood Pressure 145/90 10/24/2024 10:10 AM CDT Pulse 75 10/24/2024 10:02 AM CDT Temperature 36.3 C (97.4 F) 10/24/2024 10:02 AM CDT Respiratory Rate 15 10/24/2024 10:0 2 AM CDT Oxygen Saturation 94% 10/24/2024 10: 02 AM CDT Inhaled Oxygen Concentration - - Weight 131.8 kg (290 lb 9.6 oz) 025 10:02 AM CDT Height 185.4 cm (6' 1 ) 12/08/2023 10:5 5 AM CDT Body Mass Index 38.34 12/08/2023 10:55 AM CDT Plan of Treatment Upcoming Encounters Date Type Department Care Team (Late st Contact Info) Description 01/02/2025 4:30 PM CDT Telephone Check Up [facility] Oncology and Hematology - [place] [address] [facility] [address] [place] [address] Bryce Lema MD [address] [facility] [address] [place] [address] Health Maintenance Due Date Last [...] 09/30/2023, 06/24/2023, Additional history exists Medicare Ad[place]age ([place]) Preventative Visit/Annual Wellness Visit 07/26/2024 COLORECTAL SCREENING 12/10/2032 12/10/2022 Colorectal Cancer Screening 12/10/2032 Medical Devices Implanted Type Area Hazardous Substances Engineer Device Identifier Shelf Expiration Date Model / Serial / Lot Clip Ligating Horizon Lg Ti [id number] - Csc - [id number] Implanted:Qty : 1 on 10/19/2023 by Benji Olson MD at [facility] Clip Right: Chest TELEFLEX- WECK CLOSURE SYS 11/15/2023 [id number] / / [id number] Clip Ligating Horizon Med Ti [id number] - Csc - [id number] Implanted:Qty : 2 on 10/19/2023 by Benji Olson MD at [facility] Clip Right: Chest TELEFLEX- WECK CLOSURE SYS 12/15/2027 [id number] / / [id number] Clip Ligating Horizon Med Ti [id number] - Csc - [id number] Implanted:Qty : 1 on 10/19/2023 by Benji Olson MD at [facility] Clip Right: Chest TELEFLEX- WECK CLOSURE SYS 09/30/2027 [id number] / / [id number] Clip Ligating Horizon Med Ti [id number] - Csc - [id number] Implanted:Qty : 2 on 11/25/2023 by Benji Olson MD at [facility] Clip TELEFLEX- WECK CLOSURE SYS [id number] 07/05/2028 [id number] / / [id number] Clip Ligating Horizon Lg Ti [id number] - Csc - [id number] Implanted:Qty : 1 on 11/25/2023 by Benji Olson MD at [facility] Clip Right: Chest TELEFLEX- WECK CLOSURE SYS 01/28/2028 [id number] / / [id number] Sealant Progel Pleural 4ml [id number] - [id number] Implanted:Qty : 1 on 10/19/2023 by Benji Olson MD at [facility] Tissue Right: Lung BARD DAVOL [id number] 10/16/2024 [id number] / / [id number] Sealant Progel Pleural 4ml [id number] - [id number] Implanted:Qty : 1 on 11/25/2023 by Benji Olson MD at [facility] Tissue Right: Chest BARD ROMÁNOL [id number] 02/23/2025 [id number] / / [id number] Procedures Procedure Name Priority Date/Time Associated Diagnosis Comments BASIC METABOLIC PANEL Routine 10/24/2024 1:24 PM CDT CBC MIXED CELL DIFFERENTIAL Routine 10/24/2024 1:[address] CHEST W CONTRAST Routine 10/17/2024 9 :03 AM CDT CBC WITH DIFFERENTIAL Routine 08/07/2024 4:25 PM PHYSICIAN CODER COMPREHENSIVE METABOLIC PANEL Routine 08/07/2024 1:23 PM PHYSICIAN CODER BASIC METABOLIC PANEL Routine 08/07/2024 12:05 PM PHYSICIAN CODER HEMOGLOBIN A1C Routine 10/06/2023 12:24 PM CDT LIPID PANEL Routine 06/26/2011 7:55 AM PHYSICIAN CODER Laboratory examination, unspecified from Last 3 Months or Most Recently Relevant to Health Maintenance Results * BASIC METABOLIC PANEL (10/24/2024 1:24 PM CDT) Only the most recent of2 resultswithin the time period is included. Blood us Bryce Lema MD CHEMISTRY ORDERABLES Final Resu lt * CBC MIXED CELL DIFFERENTIAL (10/24/2024 1:22 PM CDT) Blood us Bryce Lema MD HEMATOLOGY ORDERABLES Final Res ult * CT CHEST W CONTRAST (10/17/2024 9:03 AM CDT) Anatomical Region Laterality Modality Chest Computed Tomogra phy us Bryce Lema MD CT ORDERABLES Final Result * CBC WITH DIFFERENTIAL (08/07/2024 4:25 PM PHYSICIAN CODER) Blood us Bryce Lema MD HEMATOLOGY ORDERABLES Final Res ult * COMPREHENSIVE METABOLIC PANEL (08/07/2024 1:23 PM PHYSICIAN CODER) Blood Bryce Lema MD CHEMISTRY ORDERABLES Final Resu lt * (ABNORMAL) HEMOGLOBIN A1C (10/06/2023 12:24 PM CDT) HEMOGLOBIN A1C 8.2(H) <5.7 % 10/06/2023 1:13 PM CDT [facility] EST. AVG GLUCOSE, A1C 189 mg/dL 10/06/2023 1:13 PM CDT [facility] Blood Venipuncture / Unknown 10/06/2023 12:24 PM CDT 10/06/2023 12:51 PM CDT Narrative [facility] - 10/06/2023 1:13 PM CDT HGB A1C INTERPRETATION NORMAL: <5.7% PRE-DIABETES: 5.7 - 6.4% DIABETES: 6.5% OR GREATER Debra Dunn PA-C CHEMISTRY ORDERABLES Final R esult [facility]# [id number] [address] [facility] [place] [id number] * (ABNORMAL) LIPID PANEL (06/26/2011 7:55 AM PHYSICIAN CODER) CHOLESTEROL 174 100 - 199 mg/dL [facility] TRIGLYCERIDE 172(H) 10 - 149 mg/dL [facility] HDL 36(L) 40 - 59 mg/dL [facility] CHOL/HDL RATIO 4.8 2.0 - 5.0 [facility] LDL CALCULATED 104(H) <=99 mg/dL [facility] LIPID PANEL COMMENT See Below [facility] Comment: The adult ATP and pediatric NCEP classifications for lipids are available in the Laboratory Services Policy Manual on the [facility] Intranet at: [email or web address]/ Blood specimen (specimen) 06/26/2011 7:55 AM PHYSICIAN CODER 06/26/2011 5:50 PM PHYSICIAN CODER [employer]Catherine Santos CHEMISTRY ORDERABLES Edited [facility] CLIA# [id number] [address] [place] [address] from Last 3 Months or Most Recently Relevant to Health Maintenance Insurance AETNA [facility] RX [employer] PLANS (INTERNAL) [facility] Internal Plans Advance Directives For more information, please contact: [phone] * Full Code (Latest Code Status on [...] 6:49 PM 10/22/2023 4:46 PM Care Teams Health Professional Relationship Specialty Start Date End Date Manohar Gann MD [address] [place] [address] PCP - General Family Practice 09/16/23
--- OUTSIDE RECORDS SUMMARY | 2024-11-02 10:24 | XMS_ITS | Encounter Summary ---
Author Organization [facility] Address [address] [place] [address] Care Team Providers Care Metal Stamper Name Role Phone Manohar Gann MD Primary Care Provider Encounter Details Date Type Department Care Team (Late Contact Info) Description 10/30/2024 Orders Only [facility] Oncology and Hematology - Karri [address] [facility] [address] [place] [address] Bryce Lema MD [address] [facility] [address] [place] [address] Malignant neoplasm of upper lobe [...] on file Legal Sex Male 6:06 AM SORT LINE WORKER Gender Identity Not on file Sexual Orientation Not on file documented as of this encounter Plan of Treatment Upcoming Encounters Date Type Department Care Team (Late Contact Info) Description 01/02/2025 4:30 PM CDT Telephone Check Up [facility] Oncology and Hematology - Karri [address] [place] [address] Bryce Lema MD [address] [facility] [address] [place] [address] documented as of this encounter Visit Diagnoses Diagnosis Malignant neoplasm of upper lobe of right lung (CMS/HCC) Malignant neoplasm of upper lobe, bronchus or lung documented in this encounter Care Teams Metal Stamper Relationship Specialty Start Date End Date Manohar Gann MD [address] [place] [address] PCP - General Family Practice 09/16/23 documented as of this encounter
== END 2024-11-02 09:49 | disposition home or self-care (01) ==
PROVIDERS: PCP Family Medicine; Visit Provider Nurse Practitioner Adult Health
DX: R06.2 Wheezing (principal)
CPT/HCPCS: 71046

== ENCOUNTER 2024-12-07 13:48 | Outpatient (RCR) | payer MEDICARE, SELFPAY | END 2025-02-26 10:15 | disposition home or self-care (01) | LOC: ANHDMC 13:48 | PROVIDERS: PCP Family Medicine; Visit Provider Nurse Practitioner Adult Health | DX: E11.65 Type 2 diabetes mellitus with hyperglycemia (principal); Z71.89 Other specified counseling | CPT/HCPCS: G0109 ==

== ENCOUNTER 2025-01-02 07:31 | Outpatient (CLI) | payer MEDICARE, SELFPAY ==
--- NOTE | ~2025-01-02 | CT_ITS ---
Clinical Indication: Lung cancer CT Scan of the Chest with Contrast: Technique: Contiguous sections were acquired throughout the chest after intravenous administration of 75 cc of Omnipaque 350. Dose reduction technique was used on this scan by utilizing automated exposu re control and iterative reconstruction technique. The dose-length product (DLP) was 828.10 mGy-cm. COMPARISON: 10/17/2024 Findings: There is no evidence of any significant mediastinal, hilar or axillary lymphadenopathy. There is no f illing defect in the pulmonary arterial tree to suggest pulmonary embolus. There is no evidence of ao rtic dissection or aneurysm. There is no evidence of pleural or pericardial effusion. Status post right upper lobectomy with probable postoperative scarring in the right lung. There is pa tchy groundglass opacity in the right lower lobe, likely representing infectious/inflammatory process . Left lung clear. Images through the upper abdomen reveal calcified gallstone. Impression: Status post left upper lobectomy. No evidence for recurrent malignancy. Patchy ground glass opacity right lower lobe is suspicious for infectious/inflammatory process. Reviewed, dictated and finalized at [facility]. Impression: Status post left upper lobectomy. No evidence for recurrent malignancy. Patchy ground glass opacity right lower lobe is suspicious for infectious/infla mmatory process.
--- OUTSIDE RECORDS SUMMARY | 2025-01-02 07:31 | XMS_ITS | Clinical Summary ---
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 Factory Worker Name Role Phone Manohar Gann MD Primary Care Provider [phone] Allergies Active Allergy Reactions Criticality Noted Date [...] Encounters Date Type Department Care Team Description 01/01/2025 Orders Only [facility] Oncology and Hematology - Karri Nate [address] [place] [address] Bryce Lema MD Malignant neoplasm of upper lobe of right lung (CMS/HCC) 12/28/2024 Telephone [facility] Oncology and Hematology - Karri [address]De[address] Scan (Contacted patient to provide CT Scan appointment info) 12/25/2024 Orders Only [facility] Oncology and Hematology - Karri Aston Klein [address] Bryce Lema MD Malignant neoplasm of upper lobe of right lung (CMS/HCC) 12/18/2024 Orders Only [facility] Oncology and Hematology - Karri Aston Klein [address] Bryce Lema MD Malignant neoplasm of upper lobe of right lung (CMS/HCC) 12/14/2024 External Device Data STL ABSTRACTION Provider, Abstract 12/14/2024 External Device Data STL ABSTRACTION Provider, Abstract 12/13/2024 External Device Data STL ABSTRACTION Provider, Abstract 12/13/2024 External Device Data STL ABSTRACTION Provider, Abstract 12/12/2024 External Device Data STL ABSTRACTION Provider, Abstract 12/11/2024 Orders Only [facility] Oncology and Hematology - Karri [address]De[address] Bryce Lema MD Malignant neoplasm of upper lobe of right lung (CMS/HCC) 12/04/2024 Orders Only [facility] Oncology and Hematology - Karri Aston Klein [address] [place] [id number] Bryce Lema MD Malignant neoplasm of upper lobe of right lung (CMS/HCC) 11/27/2024 Orders Only [facility] Oncology and Hematology - Karri Aston [address] [place] [id number] Bryce Lema MD Malignant neoplasm of upper lobe of right lung (CMS/HCC) 11/20/2024 Orders Only [facility] Oncology and Hematology - Karri Aston [address] Bryce Lema MD Malignant neoplasm of upper lobe of right lung (CMS/HCC) 11/13/2024 Orders Only [facility] Oncology and Hematology - Karri [address] Bryce Lema MD Malignant neoplasm of upper lobe of right lung (CMS/HCC) 11/06/2024 Orders Only [facility] Oncology and Hematology - Karri [address] Bryce Lema MD Malignant neoplasm of upper lobe of right lung (CMS/HCC) 10/30/2024 Orders Only [facility] Oncology and Hematology - Karri [address] Bryce Lema MD Malignant neoplasm of upper lobe of right lung (CMS/HCC) 10/24/2024 10:00 AM CDT Office Visit [facility] Oncology and Hematology - Karri [address] [place] [id number] Bryce Lema MD Malignant neoplasm of upper lobe of right lung (CMS/HCC) (Primary Dx) 10/24/2024 Orders Only [facility] Oncology and Hematology - Karri [address] [place] [address] Bryce Lema MD 10/23/2024 Orders Only [facility] Oncology and Hematology - Karri [address] [place] [address] Bryce Lema MD Malignant neoplasm of upper lobe of right lung (CMS/HCC) 10/18/2024 Orders Only [facility] Oncology and Hematology - Karri Aston [address] [place] [id number] Bryce Lema MD 10/16/2024 Orders Only [facility] Oncology and Hematology - Karri [address] [place] [id number] Bryce Lema MD Malignant neoplasm of upper lobe of right lung (CMS/HCC) 10/11/2024 External Device Data STL ABSTRACTION Provider, Abstract 10/09/2024 Orders Only [facility] Oncology and Hematology - Karri [address] [place] [address] Bryce Lema MD Malignant neoplasm of upper lobe of right lung (CMS/HCC) 10/02/2024 Orders Only [facility] Oncology and Hematology - Karri [address] [place] [address] Bryce Lema MD Malignant neoplasm of upper [...] No 11/18/2023 Food Insecurity Answer Date Recorded Patient needs follow up regardin 11/16/2024 Transportation Needs Answer Date Record ed Patient needs follow up regardin 11/16/2024 Housing Stability Answer Date Recorded Social/Environmental Concerns No concerns Utility Needs Answer Date Recorded Patient needs follow up regardin 11/16/2024 Sex and Gender Information Value Date Recorded Sex Assigned at Not on file Legal Sex Male 6:06 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 Gender Identity Not on file Sexual Orientation [...] 10:02 AM CDT Height 185.4 cm (6' 1) 12/08/2023 10:5 5 AM CDT Body Mass Index 38.34 12/08/2023 10:55 AM CDT Plan of Treatment Upcoming Encounters Date Type Department Care Team (Late st Contact Info) Description 01/04/2025 4:30 PM CDT Telephone Check Up [facility] Oncology and Hematology - Karri [address] [facility] [address] [place] [address] Bryce Lema MD [address] [facility] [address] [place] [address] Health Maintenance Due Date Last [...] MONTHS 04/07/20242023, 09/30/2023, 06/24/2023, Additional history exists COLORECTAL SCREENING 12/10/2032 12/10/2022 Colorectal Cancer Screening 12/10/2032 Medical Devices Implanted Type Area Alligator Shear Operator Device Identifier Shelf Expiration Date Model / Serial / Lot Clip Ligating Horizon Lg Ti [id number] - [facility] - [id number] Implanted:Qty : 1 on 10/19/2023 by Benji Olson MD at [facility] Clip Right: Chest TELEFLEX- WECK CLOSURE SYS 11/15/2023 [id number] / / [id number] Clip Ligating Horizon Med Ti [id number] - Csc - [id number] Implanted:Qty : 2 on 10/19/2023 by Benji Olson MD at [facility] Clip Right: Chest TELEFLEX- WECK CLOSURE SYS 12/15/2027 [id number] / / [id number] Clip Ligating Horizon Med Ti [id number] - Csc - [id number] Implanted:Qty : 1 on 10/19/2023 by Benji Olson MD at [facility] Clip Right: Chest TELEFLEX- WECK CLOSURE SYS 09/30/2027 [id number] / / [id number] Clip Ligating Horizon Med Ti [id number] - Csc - [id number] Implanted:Qty : 2 on 11/25/2023 by Benji Olson MD at [facility] Clip TELEFLEX- WECK CLOSURE SYS [id number] 07/05/2028 [id number] / / [id number] Clip Ligating Horizon Lg Ti [id number] - Csc - [id number] Implanted:Qty : 1 on 11/25/2023 by Benji Olson MD at [facility] Clip Right: Chest TELEFLEX- WECK CLOSURE SYS 01/28/2028 [id number] / / [id number] Sealant Progel Pleural 4ml [id number] - [id number] Implanted:Qty : 1 on 10/19/2023 by Benji Olson MD at [facility] Tissue Right: Lung BARD DAVOL [id number] 10/16/2024 [id number] / / [id number] Sealant Progel Pleural 4ml [id number] - [id number] Implanted:Qty : 1 on 11/25/2023 by Benji Olson MD at [facility] Tissue Right: Chest BARD DAVOL [id number] 02/23/2025 [id number] / / [id number] Procedures Procedure Name Priority Date/Time Associated Diagnosis Comments BASIC METABOLIC PANEL Routine 10/24/2024 1:24 PM CDT CBC MIXED CELL DIFFERENTIAL Routine 10/24/2024 1:[address] CHEST W CONTRAST Routine 10/17/2024 9 :03 AM CDT HEMOGLOBIN A1C Routine 10/06/2023 12:24 PM CDT LIPID PANEL Routine 06/26/2011 7:55 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 Laboratory examination, unspecified from Last 3 Months or Most Recently Relevant to Health Maintenance Results * BASIC METABOLIC PANEL (10/24/2024 1:24 PM CDT) Blood us Bryce Lema MD CHEMISTRY ORDERABLES Final Resu lt * CBC MIXED CELL DIFFERENTIAL (10/24/2024 1:22 PM CDT) Blood us Bryce Lema MD HEMATOLOGY ORDERABLES Final Res ult * CT CHEST W CONTRAST (10/17/2024 9:03 AM CDT) Anatomical Region Laterality Modality Chest Computed Tomogra phy us Bryce Lema MD CT ORDERABLES Final Result * (ABNORMAL) HEMOGLOBIN A1C (10/06/2023 12:24 PM CDT) HEMOGLOBIN A1C 8.2(H) <5.7 % 10/06/2023 1:13 PM CDT [facility] EST. AVG GLUCOSE, A1C 189 mg/dL 10/06/2023 1:13 PM CDT [facility] [employer] [facility] Blood Venipuncture / Unknown 10/06/2023 12:24 PM CDT 10/06/2023 12:51 PM CDT Narrative [facility] - 10/06/2023 1:13 PM CDT HGB A1C INTERPRETATION NORMAL: <5.7% PRE-DIABETES: 5.7 - 6.4% DIABETES: 6.5% OR GREATER Debra Dunn PA-C CHEMISTRY ORDERABLES Final R esult [facility] [id number] [address] [place] [address] * (ABNORMAL) LIPID PANEL (06/26/2011 7:55 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) [facility] CHOLESTEROL 174 100 - 199 mg/dL [facility] TRIGLYCERIDE 172(H) 10 - 149 mg/dL [facility] HDL 36(L) 40 - 59 mg/dL [facility] CHOL/HDL RATIO 4.8 2.0 - 5.0 [facility] LDL CALCULATED 104(H) <=99 mg/dL [facility] LIPID PANEL COMMENT See Below [facility] Comment: The adult ATP and pediatric NCEP classifications for lipids are available in the Laboratory Services Policy Manual on the [facility] Intranet at: http://[employer]-intranet.[facility]/ Blood specimen (specimen) 06/26/2011 7:55 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 06/26/2011 5:50 PM EDUCATION PROGRAM ASSOCIATE [employer]Catherine Santos CHEMISTRY ORDERABLES Edited Performing Organization Address City/[facility]/ZIP Co de Phone Number [facility]# [id number] [address] [place] [address] from Last 3 Months or Most Recently Relevant to Health Maintenance Insurance [facility] RX [employer] PL[employer] (INTERNAL) [facility] Internal Plans Advance Directives For more information, please contact: [phone] * Full Code (Latest Code Status on [...] 6:49 PM 10/22/2023 4:46 PM Care Teams Plywood Factory Worker Relationship Specialty Start Date End Date Manohar Gann MD [address] [place] [address] PCP - General Family Practice 09/16/23
--- OUTSIDE RECORDS SUMMARY | 2025-01-02 07:31 | XMS_ITS | Encounter Summary ---
Author Organization [facility] Address [address] [place] [address] Care Team Providers Care Shank Tapper Name Role Phone Manohar Gann MD Primary Care Provider Encounter Details Date Type Department Care Team (Late Contact Info) Description 01/01/2025 Orders Only [facility] Oncology and Hematology - Karri [address] [facility] [address] [place] [address] Bryce Lema MD [address] [facility] [address] [place] [address] Malignant neoplasm of upper lobe [...] on file Legal Sex Male 6:06 AM RN EMERGENCY ROOM Gender Identity Not on file Sexual Orientation Not on file documented as of this encounter Plan of Treatment Upcoming Encounters Date Type Department Care Team (Late st Contact Info) Description 01/04/2025 4:30 PM CDT Telephone Check Up [facility] Oncology and Hematology - Karri [address] [facility] [address] [place] [address] Bryce Lema MD [address] [facility] [address] [place] [address] documented as of this encounter Visit Diagnoses Diagnosis Malignant neoplasm of upper lobe of right lung (CMS/HCC) Malignant neoplasm of upper lobe, bronchus or lung documented in this encounter Care Teams Shank Tapper Relationship Specialty Start Date End Date Manohar Gann MD [address] [place] [address] PCP - General Family Practice 09/16/23 documented as of this encounter
--- OUTSIDE RECORDS SUMMARY | 2025-01-02 07:31 | XMS_ITS | Clinical Summary ---
Author Organization [facility] Address [address] [facility] [place] [address] Care Team Providers Care Health Care Social Worker Name Role Phone Manohar Gann MD Primary Care Provider [phone] Source Comments [facility],non-[facility] Affiliates and Associated Physician Practices is amultiple site organization consisting of ambulatory clinics and hospital sitesin [place], [place], [place] and [place]. This disclosure is being madepursuant to the Care Everywhere program and may not contain all information available regarding this patient. Last updated 18.[facility] [employer] Allergies Active Allergy Reactions Criticality Noted Date Comments Clarithromycin 04/16/2011 Urinary tract issues Medications * Be aware that medications may not be up to date on this document. Alwaysverify current medications with the patient. aspirin 81 MG chew tablet Take 81 mg by mouth once daily. Active multivitamin daily (THERAGRAN) tablet Take 1 Tab by mouth daily with food. Active hydrochlorothiazi de (HYDRODIURIL) 25 MG tablet Take 25 mg by mouth once daily. Active choline fenofibrate (TRILIPIX) 135 MG capsule Take 135 mg by mouth once daily. Active ciprofloxacin (CIPRO) 500 MG tablet Take 1 Tab by mouth 2 times daily. 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 Gender Identity Not on file Sexual Orientation [...] 4:48 PM CDT Height 185.4 cm (6' 1) 11/14/2012 4:48 PM CDT Body Mass Index [...] CDT 04/17/2011 3:57 AM CDT Jeannine Mayo HEAT SEAL OPERATOR-OIL HEAT TECHNICIAN LAB - CHEMISTRY ORDERABLES Final Result [facility] [address] [place] [address] from Last 3 Months or Most Recently Relevant to Health Maintenance Insurance [facility] Address: [address] [place] [address] MEDICARE [facility] Address: [address] [place] [address] MEDICARE MEDICARE MEDICARE [facility] Address: [address] [address] MEDICARE Member Subscriber Plan / Payer (Ef fective for All Dates) Name:Starla Kev Member ID:[id number] Relation to Subscriber:Self Name:StarlaKev Subscriber ID:[id number] Payer ID:Not on file Group ID:Not on file Type:Medicare Address: [place] [id number] [facility] Address: [address] [place] [address] MEDICARE [employer] [facility] Address: [facility] [id number] [place] [address] Advance Directives * FULL RESUSCITATION (Latest Code Status on File) Date Activated Date Inactivated Comments 04/16/2011 7:02 PM 04/18/2011 1:02 AM Care Teams Health Care Social Worker Relationship Specialty Start Date End Date Manohar Gann MD [address] [place] [address] PCP - General 04/16/11
--- OUTSIDE RECORDS SUMMARY | 2025-01-02 07:31 | XMS_ITS ---
Author Organization [facility] Address [address] [place] [address] Phone Care Team Providers Care Embroidery Worker Name Role Phone Manohar Gann MD Primary Care Provider [phone] Active Problems Problem Noted Date Diagnosed Date [...]
[2025-01-02 07:54] LABS: Estimated Glomerular Filt Rate 60
[2025-01-02 09:25] LABS: Creatinine Urine 61.3 mg/dL
[2025-01-02 09:40] LABS: MALB Creatinine Ratio 403.4 mg/g (0-30); Microalbumin Urine Random 247.3 mg/L (0-16.7)
== END 2025-01-02 07:32 | disposition home or self-care (01) ==
PROVIDERS: Nurse Practitioner Family; PCP Family Medicine; Visit Provider Internal Medicine Hematology & Oncology
DX: R91.8 Other nonspecific abnormal finding of lung field (principal); E11.9 Type 2 diabetes mellitus without complications; R80.9 Proteinuria, unspecified; Z90.2 Acquired absence of lung [part of]; C34.11 Malignant neoplasm of upper lobe, right bronchus or lung
CPT/HCPCS: 71260; 82043; Q9967

== ENCOUNTER 2025-02-09 09:27 | Emergency (ER) | payer MEDICARE, SELFPAY ==
[2025-02-09 09:37] VITALS: BP 146/85; PULSE 77; RESP 18; TEMP 36.5; O2SAT 97
--- NOTE | 2025-02-09 09:48 | ED.EYEPROB ---
HPI - Eye Problem General Chief complaint: Eye Problems Stated complaint: right eye irritation Time Seen by Provider: 02/09/25 09:30 Source: patient Mode of arrival: ambulatory Limitations: no limitations History of Present Illness HPI Narrative: Patient is a 16-year-old male who presents with right eye redness, irritation and gritty feeling since this morning. Patient has been spreading a lot of mulch this past week and states there was some mold on the mulch. Denies any pain, vision changes or foreign body in eye. Related Data Allergies Allergy/AdvReac Type Severity Reaction Status Date / Time clarithromycin Allergy Mild TESTICLES Verified 02/09/25 09:44 SWELL hops AdvReac Mild NASAL Verified 02/09/25 09:44 CONGESTION Review of Systems Review of Systems: All systems reviewed & are unremarkable except as noted in HPI and below Constitutional: Constitutional: Denies body ache(s), Denies fever(s), Denies headache(s), Denies malaise and Denies weakness Eyes: Eyes: Denies blurry vision, Denies eye discharge, Reports irritation, Reports itchy eyes, Denies loss of vision and Denies eye pain ENT: Denies otalgia, Denies headache(s), Denies nasal discharge, Denies sinus pain and Denies sore throat Cardiovascular: Cardiovascular: Denies chest pain, Denies irregular heart rhythm and Denies dyspnea Respiratory: Respiratory: Denies dyspnea Gastrointestinal: Gastrointestinal: Denies abdominal pain, Denies diarrhea, Denies nausea and Denies vomiting Musculoskeletal: Musculoskeletal: Denies back pain, Denies myalgias and Denies arthralgias Integumentary/Breasts: Skin/Breast: Denies pruritus and Denies rash Neurologic: Denies headache(s), Denies loss of vision and Denies weakness Psychiatric: Psychiatric: Reports no additional psychiatric complaints Allergic/Immunologic: Allergic/Immunologic: Reports itchy eyes PMFSH Past Medical History Medical History Bronchitis Otitis media with effusion Cough Wheezing Kidney function abnormal Low body temperature Mass of right lung Shortness of breath Urinary frequency Acute sinusitis Fracture, finger Colon cancer screening Personal history of nicotine dependence LUCAS (dyspnea on exertion) Bradycardia Hx of bacterial pneumonia Urinary hesitancy Post covid-19 condition, unspecified History of COVID-19 COVID-19 Tobacco abuse New onset type 2 diabetes mellitus Acute left-sided low back pain with left-sided sciatica Chronic right shoulder pain Diabetes type 2, controlled Essential (primary) hypertension Mixed hyperlipidemia Tobacco use Surgical History Surgical History H/O shoulder surgery H/O bone graft S/P right rotator cuff repair Family History Family History Father Cerebrovascular accident Mother Family history of diabetes mellitus in first degree relative Family history of coronary artery disease Acute myocardial infarction Diabetes mellitus Sibling No problems noted. Social History Social History Smoking packs per day: 1 Smoking cigarettes per day: 20.0 Years smoked: 40 Smoking pack-years: 40.00 Smoking status: Former smoker Tobacco type: cigarettes Second hand tobacco smoke exposure: Yes Alcohol intake: current Substance use: never Substance use type: does not use Do You Feel Safe in your Home?: Yes Lack of Transportation: No Lack of Food: Never True Current Housing: I Have Housing Concerned About Future Housing: No Difficulty Paying Gas/Electric Bills: No Difficulty Paying for Meds: No Currently Unemployed: No Education: High School Diploma/GED Difficulty w/ Childcare or Family Care: No Living arrangements: with family Additional living arrangements comments: Occupation/Education: 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 There is no relevant family history pertinent to the presenting complaint. Exam Const: General: cooperative, healthy appearing, comfortable, no acute distress and well nourished Nutritional Appearance: well nourished Orientation/consciousness: patient oriented x3 Limitations: no limitations HENMT: Head: normal to inspection, normocephalic and atraumatic Ears: external ears normal Face/Nose/Sinus: Normal external nose present, normal facial exam and face symmetric Face and sinus: normal facial exam and face symmetric Mouth: Yes lip normal Eyes: General: appearance normal, both eyes and all related structures Visual Cardenas: normal visual cardenas by confrontation Alignment and Position: alignment normal and position normal Periorbital: periorbital findings normal Eyelids: eyelids normal Conjunctivae: conjunctival abnormality right conjunctival injection diffuse Sclera: scleral abnormality right scleral injection diffuse Pupils: Equal, round and reactive pupils present EOM: EOMs intact bilaterally Direct Ophthalmoscopy: no photophobia Other: No hyphema, no foreign body under the lids. Neck: Neck: normal visual inspection, full ROM, no lymphadenopathy and no meningeal signs Chest: Chest palpation & inspection: normal inspection of the chest Resp: Effort & Inspection: normal respiratory effort and able to speak in complete sentences Auscultation: clear to auscultation bilaterally Cardio: Rate: regular rate Rhythm: regular rhythm Heart sounds: S1 normal heart sound present and S2 normal heart sound present GI: Inspection: normal to inspection Skin: General skin exam: normal color and no rashes or lesions noted Neuro: General: patient oriented x3, moves all extremities and no meningeal signs Cranial nerves: Yes Equal, round and reactive pupils present Speech: normal speech Gait exam (Neuro): Normal gait present Extrem: General: normal to inspection, full ROM and no edema Psych: Appearance: grossly normal and well kempt Mental Status: mental status grossly normal Speech and movement: Normal speech and movement present Affect: normal affect Attitude: cooperative Thought process: Normal thought process present Course Course Emergency Course: Patient is aware of diagnosis, understands and agrees to treatment plan. Anticipatory guidance given. Patient agrees to follow-up as directed and is aware of reasons to seek care at the emergency department. Portions of this record may have been created with voice recognition software Level of Care: Express Care Visit Vital Signs Vital signs: Vital Signs Temperature 36.5 C 02/09/25 09:37 Pulse Rate 77 02/09/25 09:37 Respiratory Rate 18 02/09/25 09:37 Blood Pressure 146/85 H 02/09/25 09:37 Pulse Oximetry 97 02/09/25 09:37 Oxygen Delivery Room Air 02/09/25 09:37 Temperature 36.5 C 02/09/25 09:37 Pulse Rate 77 02/09/25 09:37 Respiratory Rate 18 02/09/25 09:37 Blood Pressure 146/85 H 02/09/25 09:37 Pulse Oximetry 97 02/09/25 09:37 Oxygen Delivery Room Air 02/09/25 09:37 Reviewed MDM - Eye Problem MDM Narrative Medical decision making narrative: Pt well hydrated appearing, in no respiratory distress, hemodynamically stable. Recommend supportive care. The patient is stable at time of discharge the clinical impression was discussed and the patient was given the opportunity to ask questions, which were addressed as completely as possible given the information available at present. Anticipatory guidance and return to care precautions were discussed and the importance of primary care follow-up was stressed and encouraged. The patient voiced understanding of the plan, indications to return, and the need for follow-up. Exam findings show no acute concerns or changes Patient is appropriate for outpatient treatment and follow-up. Differential Diagnosis Differential diagnosis: Likely corneal abrasion, conjunctivitis and periorbital cellulitis Medical Records Attestation: I reviewed the patient's medical records. Discharge Plan Discharge Clinical Impression: Bacterial conjunctivitis Patient Disposition: Home Condition: Stable Instructions: Conjunctivitis (ED) Additional Instructions: Eye drops as prescribed. -Do this for 3 to 4 days until all redness and discharge has disappeared. -Cold compresses to the affected eye for comfort -May need warm compresses to remove debris in the morning -When cleaning the eyes used a washcloth/cotton ball in one direction then change washcloths/cotton ball before using it on another eye. -Do not share medicine--do not touch the eye with the medicine -Alternate or take Tylenol or ibuprofen as directed in the bottle for pain -Avoid screen time--television, computer, tablet or phone. -Practice good handwashing and hygiene to prevent spread of infection Follow-up with PCP or media executive if condition is not improving in 2-3days. Go to the emergency room if you have pain behind your eye, pressure behind her eye, difficulty seeing, or other severe symptoms Patient Language: Congolese Prescriptions: New ofloxacin 0.3 % drops See Rx Instructions .ROUTE .COMPLEX Qty: 10 0RF Rx Instructions: put 1-2 drps into right eye every 2-4 h x 2 days, then 1-2 drps 4 times/day days 3-7 No Action Jardiance 25 mg tablet 25 mg PO DAILY Qty: 90 4RF rosuvastatin 40 mg tablet 40 mg PO DAILY Qty: 90 1RF meloxicam 15 mg tablet 15 mg PO DAILY Qty: 20 0RF (DME) lancets [OneTouch Delica Plus Lancet] 33 gauge misc See Rx Instructions .Route Qty: 100 1RF Rx Instructions: check glucose BID (DME) OneTouch Verio test strips Strip See Rx Instructions .Route Qty: 100 2RF Rx Instructions: Blood sugar checks BID Breztri Aerosphere 160-9-4.8 mcg/actuation HFA aerosol inhaler 2 inh inhalation BID Qty: 5.9 1RF metoprolol succinate 50 mg tablet extended release 24 hr See Rx Instructions .ROUTE .COMPLEX Qty: 90 2RF Dose Instruction: TAKE 1 TABLET BY MOUTH DAILY Rx Instructions: TAKE 1 TABLET BY MOUTH DAILY Rybelsus 14 mg tablet 14 mg PO DAILY Qty: 90 0RF Follow-up/Referrals: Manohar Gann MD [Primary Care Provider] - 3 Days Time of Disposition: 09:58
== END 2025-02-09 10:07 | disposition home or self-care (01) ==
PROVIDERS: Emergency Provider Nurse Practitioner Family; PCP Family Medicine
DX: H10.9 Unspecified conjunctivitis (principal); E11.9 Type 2 diabetes mellitus without complications; Z79.84 Long term (current) use of oral hypoglycemic drugs; I10 Essential (primary) hypertension; E78.2 Mixed hyperlipidemia; Z86.16 Personal history of COVID-19
CPT/HCPCS: 99213; G0463

== ENCOUNTER 2025-04-30 08:00 | Outpatient (CLI) | payer MEDICARE, SELFPAY ==
--- NOTE | ~2025-04-30 | CT_ITS ---
Exam: CT chest with contrast Clinical History: [Lung cancer. ] History of right upper lobectomy. Comparison: [Chest CT 01/02/2025] Technique: Multiple axial CT images of the chest with IV contrast. Sagittal and coronal reformatted images were obtained. FINDINGS: Lungs and pleura: [Right upper lobectomy. No pneumothorax. No pleural effusion. No pulmonary nodules. Mediastinum and pulmonary otoniel: [ No mass or adenopathy.] Axillary/intramammary and supraclavicular: [ No mass or adenopathy.] Heart and great vessels: [ Normal heart size.[ [ No pericardial effusion.] [ No aneurysm.] There are a few coronary artery calcifications. Mild atherosclerotic disease in the thoracic aorta. Chest Wall: [ Unremarkable.] Upper Abdomen: [ No significant findings.] Osseous structures: [ No acute fracture or destructive lesion.] [ Multilevel degenerative change in the visualized spine.] Additional findings: Cholelithiasis. IMPRESSION: 1. Right upper lobectomy. No evidence of recurrent malignancy. 2. No mass or pulmonary nodules identified. 3. No lymphadenopathy in the chest. Reviewed, dictated and finalized at location Q.
--- OUTSIDE RECORDS SUMMARY | 2025-04-30 08:09 | XMS_ITS ---
Author Organization [facility] Address [address] [place] [address] Phone Care Team Providers Care Patch Washer Name Role Phone Manohar Gann MD Primary Care Provider [phone] Active Problems Problem Noted Date Diagnosed Date [...]
--- OUTSIDE RECORDS SUMMARY | 2025-04-30 08:10 | XMS_ITS | Clinical Summary ---
Author Organization [facility] Address [address] [place] [address] Phone Care Team Providers Care Copyright Clerk Name Role Phone Manohar Gann MD Primary Care Provider [phone] Allergies Active Allergy Reactions Criticality Noted Date [...] Encounters Date Type Department Care Team Description 04/17/2025 Orders Only [facility] Oncology and Hematology - [address] [place] [address] Bryce Lema MD 04/10/2025 External Device Data STL ABSTRACTION Provider, Abstract 03/13/2025 External Device Data ST[facility] ABSTRACTION Provider, Abstract 02/07/2025 External Device Data ST[facility] ABSTRACTION Provider, Abstract 02/06/2025 External Device Data STL ABSTRACTION Provider, Abstract from Last 3 Months Family History Medical [...] on file Legal 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 [place] [address] Health Maintenance Due Date Last [...] Abdominal Aortic Aneurysm (A AA) Screening 11/10/2020 DIABETES HBA1C Q 6 MONTHS 04/07/20242023, 09/30/2023, 06/24/2023, Additional history exists INFLUENZA VACCINE (#1) 2025 COLORECTAL SCREENING 12/10/2032 12/10/2022 Colorectal Cancer Screening 12/10/2032 Medical Devices Implanted Type Area Shoe Patternmaker Device Identifier Shelf Expiration Date Model / Serial / Lot Clip Ligating Horizon Lg Ti [id number] - Csc - [id number] Implanted:Qty : 1 on 10/19/2023 by Benji Olson MD at [facility] Clip Right: Chest TELEFLEX- WECK CLOSURE SYS 11/15/2023 [id number] / / [id number] Clip Ligating Horizon Med Ti [id number] - Csc - [id number] Implanted:Qty : 2 on 10/19/2023 by Benji Olson MD at [facility] Clip Right: Chest TELEFLEX- WECK CLOSURE SYS 12/15/2027 [id number] / / [id number] Clip Ligating Horizon Med Ti [id number] - Csc - [id number] Implanted:Qty : 1 on 10/19/2023 by Benji Olson MD at [facility] Clip Right: Chest TELEFLEX- WECK CLOSURE SYS 09/30/2027 [id number] / / [id number] Clip Ligating Horizon Med Ti [id number] - Csc - [id number] Implanted:Qty : 2 on 11/25/2023 by Benji Olson MD at [facility] Clip TELEFLEX- WECK CLOSURE SYS [id number] 07/05/2028 [id number] / / [id number] Clip Ligating Horizon Lg Ti [id number] - Csc - [id number] Implanted:Qty : 1 on 11/25/2023 by Benji Olson MD at [facility] Clip Right: Chest TELEFLEX- WECK CLOSURE SYS 01/28/2028 [id number] / / [id number] Sealant Progel Pleural 4ml [id number] - [id number] Implanted:Qty : 1 on 10/19/2023 by Benji Olson MD at [facility] Tissue Right: Lung BARD DAVOL [id number] 10/16/2024 [id number] / / [id number] Sealant Progel Pleural 4ml [id number] - [id number] Implanted:Qty : 1 on 11/25/2023 by Bneji Olson MD at [facility] Tissue Right: Chest BARD DAVOL [id number] 02/23/2025 [id number] / / [id number] Procedures Procedure Name Priority Date/Time Associated Diagnosis Comments BASIC METABOLIC PANEL Routine 04/16/2025 2:36 PM CDT CBC WITH AUTODIFFERENTIAL Routine 04/16/2025 2:23 PM CDT HEMOGLOBIN A1C Routine 10/06/2023 12:24 PM CDT LIPID PANEL Routine 06/26/2011 7:55 AM CAKE MIXER Laboratory examination, unspecified from Last 3 Months or Most Recently Relevant to Health Maintenance Results * BASIC METABOLIC PANEL (04/16/2025 2:36 PM CDT) Blood Bryce Lema MD CHEMISTRY ORDERABLES Final Resu lt * CBC WITH AUTODIFFERENTIAL (04/16/2025 2:23 PM CDT) Blood Bryce Lema MD HEMATOLOGY ORDERABLES Final Res ult * (ABNORMAL) HEMOGLOBIN A1C (10/06/2023 12:24 PM CDT) HEMOGLOBIN A1C 8.2(H) <5.7 % 10/06/2023 1:[address] [facility] EST. AVG GLUCOSE, A1C 189 mg/dL 10/06/2023 1:[address] [facility] Blood Venipuncture / Unknown 10/06/2023 12:24 PM CDT 10/06/2023 12:[address] [facility] - 10/06/2023 1:13 PM CDT HGB A1C INTERPRETATION NORMAL: <5.7% PRE-DIABETES: 5.7 - 6.4% DIABETES: 6.5% OR GREATER Debra Dunn PA-C CHEMISTRY ORDERABLES Final R esult [facility] D2S [facility] CLIA# [id number] [facility] [place] [address] * (ABNORMAL) LIPID PANEL (06/26/2011 7:55 AM CAKE MIXER) CHOLESTEROL 174 100 - 199 mg/dL [facility] TRIGLYCERIDE 172(H) 10 - 149 mg/dL [facility] HDL 36(L) 40 - 59 mg/dL [facility] CHOL/HDL RATIO 4.8 2.0 - 5.0 [facility] LDL CALCULATED 104(H) <=99 mg/dL [facility] LIPID PANEL COMMENT See Below [facility] Comment: The adult ATP and pediatric NCEP classifications for lipids are available in the Laboratory Services Policy Manual on the [facility] Intranet at: [email or web address]-intranet.[facility]/ Blood specimen (specimen) 06/26/2011 7:55 AM CAKE MIXER 06/26/2011 5:50 PM CAKE MIXER [employer]Catherine Livingston [employer] CHEMISTRY ORDERABLES Edited [facility] CLIA# [id number] [address] [place] [place] [address] from Last 3 Months or Most Recently Relevant to Health Maintenance Insurance [employer] PPO MCR [employer] (INTERNAL) [facility] Internal Plans Advance Directives For more information, please contact: [phone] * Full Code (Latest Code Status on [...] 6:49 PM 10/22/2023 4:46 PM Care Teams Copyright Clerk Relationship Specialty Start Date End Date Manohar Gann MD [address] [place] [address] PCP - General Family Practice 09/16/23
--- OUTSIDE RECORDS SUMMARY | 2025-04-30 08:10 | XMS_ITS | Clinical Summary ---
Author Organization [facility] Address [address] [address] Care Team Providers Care Machine Setter Supervisor Name Role Phone Manohar Gann MD Primary Care Provider [phone] Source Comments [facility],non-[facility] Affiliates and Associated Physician Practices is amultiple site organization consisting of ambulatory clinics and hospital sitesin [place], [place], [place]. This disclosure is being madepursuant to the Care Everywhere program and may not contain all information available regarding this patient. 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 Gender Identity Not on file Sexual Orientation [...] LIPID TESTING 04/17/2016 04/17/2011 AAA SCREENING 11/10/2020 DEPRESSION SCREENING 07/26/2024 COVID-19 VACCINE (1 - 2023-2 5 season) 2025 INFLUENZA VACCINE (#1) 2025 04/17/2011 Respiratory Syncytial Virus (RSV) Vaccine Pt: or [...] CDT 04/17/2011 3:57 AM CDT Jeannine Mayo FIRE REGULATOR-KNITTING TEACHER LAB - CHEMISTRY ORDERABLES Final Result [facility] [address] [place] [address] from Last 3 Months or Most Recently Relevant to Health Maintenance Insurance [employer] MEDICARE HE[employer] MEDICARE MEDICARE MEDICARE HE[employer] MEDICARE Member Subscriber Plan / Payer (Ef fective for All Dates) Name:Starla Kev Member ID:[id number] Relation to Subscriber:Self Name:StarlaKev Subscriber ID:[id number] Payer ID:Not on file Group ID:Not on file Type:Medicare Address: [place] [phone] [employer] MEDICARE The Other Guys Advance Directives * FULL RESUSCITATION (Latest Code Status on File) Date Activated Date Inactivated Comments 04/16/2011 7:02 PM 04/18/2011 1:02 AM Care Teams Machine Setter Supervisor Relationship Specialty Start Date End Date Manohar Gann MD [address] [place] [address] PCP - General 04/16/11
== END 2025-04-30 08:01 | disposition home or self-care (01) ==
PROVIDERS: PCP Family Medicine; Visit Provider Internal Medicine Hematology & Oncology
DX: C34.11 Malignant neoplasm of upper lobe, right bronchus or lung (principal); Z90.2 Acquired absence of lung [part of]
CPT/HCPCS: 71260; Q9967

== ENCOUNTER 2025-06-07 06:45 | Outpatient (CLI) | payer MEDICARE, SELFPAY ==
--- NOTE | ~2025-06-07 | US_ITS ---
EXAM/PROCEDURE: US renal BI HISTORY: N39.0 - Urinary tract infection, site not specified COMPARISON: None available. TECHNIQUE: Bilateral renal ultrasound FINDINGS: Right kidney: 13.2 x 6.5 x 5.3 cm Left kidney: 14.0 x 6.1 x 4.9 cm Both kidneys appear within normal limits. On limited images of the urinary bladder, no structural abnormalities seen. Bilateral ureteral jets are demonstrated. IMPRESSION: Both kidneys appear within normal limits. Reviewed, dictated and finalized at location A. LIATE MARKETING COORDINATOR
== END 2025-06-07 06:46 | disposition home or self-care (01) ==
PROVIDERS: PCP Family Medicine; Visit Provider Nurse Practitioner Adult Health
DX: N39.0 Urinary tract infection, site not specified (principal)
CPT/HCPCS: 76770